=== PATIENT | male | born 1940 | race Caucasian/White ===

== ENCOUNTER → 2018-01-29 | Outpatient (CLI) | payer MEDICARE, OTHER ==
[~2018-01-29] MED LIST: ASPI81EC; ATOR10 PO; Aspirin EC81 MG; BUDE32NIS; CREON DR 12,001 EACH; DEXL60CA3; ESCI10 PO; Flector1 EACH; HERBS; HYDACE10B; Ipratropium Bro15 ML UD; LATA.005SO; MECL25 PO; MINER; NEBI5 PO; Pentoxifylline400 MG PO; Proctosol HC30 GM; RAMI5; RAMI5 PO; Ramipril10 MG PO; TIMO.25OPS; VITS; [UNRECOGNIZED DRUG - OTHER]; [UNRECOGNIZED DRUG - OTHER]
[2018-01-29 10:33] LABS: Hematocrit 38.4 % (37.0-53.0); Hemoglobin 13.1 g/dL (13.5-17.5); Mean Corpuscular HGB 34.3 pg (26.0-34.0); Mean Corpuscular HGB Conc 34.1 g/dL (31.5-36.5); Mean Corpuscular Volume 101 fL (80-100); Mean Platelet Volume 11.3 fL (9.1-12.4); Platelet Count 168 K/mm3 (150-400); RDW Coefficient Variation 13.1 % (11.7-14.2); RDW Standard Deviation 47.7 fL (35.1-46.3); Red Blood Cell Count 3.82 M/mm3 (4.30-5.90); White Blood Cell Count 5.08 K/mm3 (4.00-11.30)
[2018-01-29 10:46] LABS: Alanine Aminotransfer (ALT/SGP 33 U/L (12-78); Albumin/Globulin Ratio 1.4 (0.8-1.8); Alk Phos 64 U/L (40-126); Anion Gap 6 mmol/L (6-16); Aspartate Aminotrans (AST/SGOT 24 U/L (12-37); Bilirubin, Total 0.6 mg/dL (0.1-1.0); Blood Urea Nitrogen 20 mg/dL (8-24); Bun/Creatinine Ratio 26.3 (12.0-20.0); CHOL/HDL RATIO 3.3; CO2, Blood 31 mmol/L (21-32); Calcium, Blood 9.5 mg/dL (8.5-10.1); Chloride, Blood 107 mmol/L (98-108); Cholesterol 127 mg/dL (50-200); Creatinine, Blood 0.76 mg/dL (0.60-1.20); Globulin, Blood 2.8 g/dL (2.2-4.0); Glomerular Filtration Rate >60 (60-); Glucose, Blood 111 mg/dL (70-99); HDL Cholesterol 39 mg/dL (>39); LDL/HDL RATIO 1.9; Low Density Lipoprotein Chol 75 mg/dL (<110); Potassium, Blood 4.8 mmol/L (3.5-5.5); Sodium, Blood 144 mmol/L (136-145); Total Protein, Blood 6.8 g/dL (6.4-8.2); Triglycerides 63 mg/dL (30-160); Uric Acid, Blood 6.8 mg/dL (3.5-7.2); Very Low Density Lipoprot Chol 12 mg/dL (6-32)
== END ==
LOC: LAB EV 09:15
PROVIDERS: Family Medicine
DX: E11.9 Type 2 diabetes mellitus without complications (principal); M10.9 Gout, unspecified; I25.10 Atherosclerotic heart disease of native coronary artery without angina pectoris
CPT/HCPCS: 36415; 80053; 80061; 83036; 84550; 85027

== ENCOUNTER 2018-08-22 20:39 | Emergency (ER) | payer MEDICARE, OTHER ==
[~2018-08-22] VITALS: Ht 175.3 cm; Wt 78.5 kg
[~2018-08-22 20:39] MED LIST changes: -ESCI10 PO; -Ipratropium Bro15 ML UD
[2018-08-22] MEDS ORDERED: Ipratropium Bro15 ML UD (22:35)
[2018-08-22] MEDS ORDERED: ESCI10 PO (22:35)
== END 2018-08-23 01:16 | disposition home or self-care (01) ==
LOC: ER 20:39
DX: R22.0 Localized swelling, mass and lump, head (principal); Z88.0 Allergy status to penicillin; Z88.8 Allergy status to other drugs, medicaments and biological substances; Z79.899 Other long term (current) drug therapy; Z79.891 Long term (current) use of opiate analgesic; Z79.82 Long term (current) use of aspirin; I10 Essential (primary) hypertension; F32.9 Major depressive disorder, single episode, unspecified
CPT/HCPCS: 70450; 99283-25

== ENCOUNTER 2019-05-11 15:16 | Inpatient (IN) | payer MEDICARE, OTHER ==
[~2019-05-11] VITALS: Ht 175.3 cm; Wt 74.3 kg
[~2019-05-11 15:16] MED LIST changes: +Ipratropium Bro15 ML UD; -LATA.005SO; -Pentoxifylline400 MG PO; -RAMI5 PO; -TIMO.25OPS
[2019-05-11] MEDS ORDERED: ATOR20 PO (16:24)
[2019-05-11] MEDS ORDERED: LATA.005SO BOTHEYES (16:25)
[2019-05-11] MEDS ORDERED: TIMO.5OPSO BOTHEYES (16:25)
[2019-05-11] MEDS ORDERED: ESCI10 PO (16:26)
[2019-05-11] MEDS ORDERED: Ramipril10 MG PO (16:26)
[2019-05-11] MEDS ORDERED: Pentoxifylline400 MG PO (16:30)
[2019-05-11] MEDS ORDERED: CELE200 PO (16:30)
[2019-05-11] MEDS ORDERED: FOLI1 PO (16:42)
--- NOTE | 2019-05-11 18:55 | NUR ---
RECIEVED PATIENT FROM ER TRANSFER, WILL SETTLE PATIENT IN AND GIVE REPORT TO ONCOMING NOC RN.
[2019-05-11] MEDS ORDERED: TEMA30 PO (20:16)
[2019-05-11] MEDS ORDERED: Zantac150 MG PO (20:17)
[2019-05-11] MEDS ORDERED: Percocet 10-321 EACH PO (20:18)
[2019-05-11] MEDS ORDERED: OMEPRAZOLE20 MG PO (20:18)
[2019-05-11] MEDS ORDERED: NITR.4SL SL (20:19)
[2019-05-11] MEDS ORDERED: MOMENI (20:20)
[2019-05-11] MEDS ORDERED: LYCOPENE10 MG PO (20:20)
[2019-05-11] MEDS ORDERED: LORA1 PO (20:21)
[2019-05-11] MEDS ORDERED: NEBI5 PO (20:24)
[2019-05-11] MEDS ORDERED: GABA600 PO (20:25)
[2019-05-11] MEDS ORDERED: Ipratropium Bro15 ML (20:26)
[2019-05-11 21:13] LABS: Creatine Kinase MB 3.2 ng/mL (0.0-3.6); Creatine Kinase MB Index 2.8 (0.0-4.0); Troponin I 0.165 ng/mL (0.000-0.040)
[2019-05-12 01:39] LABS: Creatine Kinase MB 2.5 ng/mL (0.0-3.6); Creatine Kinase MB Index 2.5 (0.0-4.0); Troponin I 0.14 ng/mL (0.000-0.040)
--- NOTE | 2019-05-12 04:36 | NUR ---
SHIFT SUMMARY: PATIENT ALERT AND ORIENTED, INDEPENDENT IN THE ROOM, COMPLIANT WITH INTERVENTIONS AND USING THE CALL LIGHT APPROPRIATLY. SKIN IS C/D/I, TROPONINS ARE TRENDING DOWN AND BP IS STABALIZING, PATIENTS HAS NO C/O CP THIS SHIFT. ADMISSION COMPLETED, BED LOW AND LOCKED WITH CALL LIGHT WITHIN REACH.
[2019-05-12 06:14] LABS: BASOPHILS ABSOLUTE AUTO 0.04 K/mm3 (0.00-0.23); BASOPHILS PERCENT AUTO 0 % (0-2); EOSINOPHILS PERCENT AUTO 1 % (0-6); Hemoglobin 12.1 g/dL (13.5-17.5); IMMATURE GRAN ABSOLUTE AUTO 0.03 K/mm3 (0.00-0.10); IMMATURE GRAN PERCENT AUTO 0 % (0-1); LYMPHOCYTES ABSOLUTE AUTO 2.45 K/mm3 (0.84-5.20); LYMPHOCYTES PERCENT AUTO 26 % (21-46); MONOCYTES ABSOLUTE AUTO 0.92 K/mm3 (0.16-1.47); MONOCYTES PERCENT AUTO 10 % (4-13); Mean Corpuscular HGB Conc 33.6 g/dL (31.5-36.5); Mean Corpuscular Volume 101 fL (80-100); Mean Platelet Volume 10.4 fL (9.1-12.4); NEUTROPHILS ABSOLUTE AUTO 5.97 K/mm3 (1.96-9.15); NEUTROPHILS PERCENT AUTO 63 % (41-73); Platelet Count 164 K/mm3 (150-400); RDW Coefficient Variation 12.8 % (11.7-14.2); RDW Standard Deviation 47.9 fL (35.1-46.3); Red Blood Cell Count 3.56 M/mm3 (4.30-5.90); White Blood Cell Count 9.51 K/mm3 (4.00-11.30)
[2019-05-12 06:20] LABS: Alanine Aminotransfer (ALT/SGP 34 U/L (12-78); Albumin, Blood 3.2 g/dL (3.4-5.0); Albumin/Globulin Ratio 1.1 (0.8-1.8); Alk Phos 65 U/L (50-136); Anion Gap 6 mmol/L (6-16); Aspartate Aminotrans (AST/SGOT 24 U/L (12-37); Bilirubin, Total 0.6 mg/dL (0.1-1.0); Blood Urea Nitrogen 20 mg/dL (8-24); Bun/Creatinine Ratio 29.6 (12.0-20.0); CO2, Blood 29 mmol/L (21-32); Calcium, Blood 8.9 mg/dL (8.5-10.1); Chloride, Blood 110 mmol/L (98-108); Creatinine, Blood 0.68 mg/dL (0.60-1.20); Globulin, Blood 2.8 g/dL (2.2-4.0); Glomerular Filtration Rate >60 (60-); Glucose, Blood 106 mg/dL (70-99); Potassium, Blood 4.3 mmol/L (3.5-5.5); Sodium, Blood 145 mmol/L (136-145)
--- NOTE | 2019-05-12 07:30 | NUR ---
DR CHAMPAGNE CALLED TO CHECK UP ON PATIENT, SHE WOULD LIKE A CARDIOLITE STRESS TEST COMPLETED TODAY TO DISCHARGE THE PATIENT TODAY. WILL PLACE ORDER, EPI GONZALEZ CALLING TO SCHEDULE WITH [facility].
--- NOTE | 2019-05-12 10:00 | NUR ---
ASSUMED CARE OF PATIENT. REPORT RECIEVED FROM GIDEON AARON. PT IS RESTING COMFORTABLY IN BED, DENIES NEEDS AT THIS TIME.
--- NOTE | 2019-05-12 11:30 | NUR ---
ASSESSMENT: ASSESSMENT UNCHAGED FROM INITIAL ASSESSMENT. PT DENIES PAIN AT THIS TIME. VSS. PT CONTINUES TO BE NPO FOR RESTING PORTION OF STRESS TEST. PT DENIES NEEDS AT THIS TIME, CALL LIGHT IN REACH. WILL CONTINUE TO MONITOR.
--- NOTE | 2019-05-12 15:10 | NUR ---
ASSESSMENT: ASSESSMENT UNCHANGED. VSS. PT IS C/O HEADACHE DUE TO LACK OF CAFFIENE R/T STRESS TEST. TYLENOL GIVEN. PT DENIES OTHER NEEDS AT THIS TIME. CALL LIGHT IN REACH, WILL CONTINUE TO MONITOR.
--- NOTE | 2019-05-12 18:50 | NUR ---
PATIENT HAS DONE WELL FOR MY SHIFT. PT HAS HAD NO CHEST PAIN FOR ME. HEP GTT CONTINUES AT 13U/KG/HR. PLAN FOR SECOND PORTION OF STRESS TEST TOMORROW, DEPENDING ON RESULTS, POSSIBLE DC. NO ACUTE CHANGES THIS SHIFT. WILL REPORT TO ONCOMING RN.
[2019-05-13 06:13] LABS: BASOPHILS ABSOLUTE AUTO 0.03 K/mm3 (0.00-0.23); BASOPHILS PERCENT AUTO 0 % (0-2); EOSINOPHILS ABSOLUTE AUTO 0.16 K/mm3 (0.00-0.68); EOSINOPHILS PERCENT AUTO 2 % (0-6); Hemoglobin 12.8 g/dL (13.5-17.5); IMMATURE GRAN ABSOLUTE AUTO 0.03 K/mm3 (0.00-0.10); IMMATURE GRAN PERCENT AUTO 0 % (0-1); LYMPHOCYTES ABSOLUTE AUTO 2.11 K/mm3 (0.84-5.20); LYMPHOCYTES PERCENT AUTO 30 % (21-46); MONOCYTES ABSOLUTE AUTO 0.65 K/mm3 (0.16-1.47); MONOCYTES PERCENT AUTO 9 % (4-13); Mean Corpuscular HGB Conc 33.7 g/dL (31.5-36.5); Mean Corpuscular Volume 101 fL (80-100); Mean Platelet Volume 10.4 fL (9.1-12.4); NEUTROPHILS ABSOLUTE AUTO 4.04 K/mm3 (1.96-9.15); NEUTROPHILS PERCENT AUTO 58 % (41-73); Platelet Count 160 K/mm3 (150-400); RDW Coefficient Variation 12.6 % (11.7-14.2); RDW Standard Deviation 46.9 fL (35.1-46.3); Red Blood Cell Count 3.76 M/mm3 (4.30-5.90); White Blood Cell Count 7.02 K/mm3 (4.00-11.30)
[2019-05-13 06:35] LABS: Alanine Aminotransfer (ALT/SGP 30 U/L (12-78); Albumin, Blood 3.2 g/dL (3.4-5.0); Alk Phos 70 U/L (50-136); Anion Gap 7 mmol/L (6-16); Aspartate Aminotrans (AST/SGOT 19 U/L (12-37); Bilirubin, Total 0.6 mg/dL (0.1-1.0); Blood Urea Nitrogen 15 mg/dL (8-24); Bun/Creatinine Ratio 26.7 (12.0-20.0); CO2, Blood 29 mmol/L (21-32); Calcium, Blood 9.1 mg/dL (8.5-10.1); Chloride, Blood 109 mmol/L (98-108); Creatinine, Blood 0.56 mg/dL (0.60-1.20); Globulin, Blood 3.1 g/dL (2.2-4.0); Glomerular Filtration Rate >60 (60-); Glucose, Blood 115 mg/dL (70-99); Magnesium, Blood 2.2 mg/dL (1.6-2.4); Phosphorus, Blood 3.9 mg/dL (2.5-4.9); Potassium, Blood 3.8 mmol/L (3.5-5.5); Sodium, Blood 145 mmol/L (136-145); Total Protein, Blood 6.3 g/dL (6.4-8.2)
--- NOTE | 2019-05-13 07:40 | NUR ---
SHIFT SUMMARY PATIENT VERY PLEASENT AND COOPERATIVE THROUGHOUT THE NIGHT. PATIENT APPEARED TO SLEEP WELL THROUGHOUT THE NIGHT. PATIENT MEDICATED FOR A HEADACHE PER EMAR. HEPARIN GTT RUNNING PER ORDERS [id number] THE NIGHT. PATIENT HAS HAD NO COMPLAINTS OF CHEST PAIN LAST NIGHT. VITAL SIGNS CHARTED. REPORT GIVEN TO ONCOMING RN.
--- NOTE | 2019-05-13 09:04 | NUR ---
DR. WOLFF: PROVIDER AT BEDSIDE TO SEE PT. PLAN IS TO COMPLETE ANGIOGRAM TODAY, TIME UNDETERMINED. CONSENT HAS BEEN DISCUSSED & PAPERWORK COMPLETED BY PT & PROVIDER. WILL CONTINUE TO MONITOR & UPDATE NEEDED.
--- NOTE | 2019-05-13 09:33 | NUR ---
[facility]ENTER: PT TAKEN VIA BED TO HEART CENTER FOR ANGIOGRAM BY URSZULA RN.
--- NOTE | 2019-05-13 09:35 | NUR ---
HEPARIN DRIP: PHARMACIST NOTIFIED THAT HEPARIN DRIP TURNED OFF BY URSZULA RN AT APPROX 0900.
--- NOTE | 2019-05-13 10:21 | NUR ---
[facility]ENTER UPDATE: CALL FROM GREYSON Hewitt RN. PT WILL BE RETURNING TO UNIT SHORTLY. 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
--- NOTE | 2019-05-13 10:49 | NUR ---
RETURN FROM [facility]ART CENTER / ASSUMED CARE: BEDSIDE REPORT RECEIVED FROM GREYSON Hewitt RN. PT RETURNED TO ROOM AT APPROX 1035. VSS, R RADIAL ACCESS SITE WNL. NO BLEEDING, BRUISING OR HEMATOMA FORMATION NOTED. TR BAND IN PLACE & INFLATED W/ APPROX 8 CC AIR. BAND PLACED AT 1015 PER REPORT. PT RECEIVED 1 MG VERSED & 25 MCG FENTANYL DURING PROCEDURE, HE IS CURRENTLY AWAKE, A&O. 3000 UNITS HEPARIN GIVEN, HEPARIN DRIP D/C'd PER DR. WOLFF. PLAN IS FOR TRANSFER TO [facility] IN [place]. COBRA TRANSFER ORDERS PLACED, ACCEPTING PROVIDER IS DR. GOLDSTEIN. WILL AWAIT BED ASSIGNMENT AT ACCEPTING FACILITY & UPDATE NEEDED
--- NOTE | 2019-05-13 18:15 | NUR ---
SHIFT SUMMARY: NO ACUTE CHANGES SINCE PT RETURN FROM HC. HE REMAINS A&O, PLEASANT & COOPERATIVE W/ CARE & WRIST PRECAUTIONS. TR BAND FULLY REMOVED AT 1500, OPSITE PLACED & ARM BOARD REMAINS ON. NO BLEEDING OR HEMATOMA FORMATION TO THE SITE OR SURROUNDING TISSUE, SMALL AMNT BRUISING DIRECTLY SURROUNDING PUNCTURE SITE IS UNCHANGED. LS ARE CLEAR, PT ON RA W/ O2 SATS > 92%. TELE MONITOR SHOWING SINUS WILLIAM W/ AVG HR 40-50s. BT x4, PT STS DECREASED APPETITE WHICH IS "NORMAL" FOR HIM. VOIDING W/O DIFFICULTY USING URINAL AT BEDSIDE. SKIN OVERALL CDI. PT's SPOUSE HAS BEEN AT BEDSIDE FOR MOST OF THIS SHIFT & IS SUPPORTIVE W/ CARE. SHE IS AWARE OF NEED FOR TRANSFER & THAT WE ARE AWAITING BED ASSIGNMENT. WILL CONTINUE TO MONITOR & UPDATE NEEDED.
--- NOTE | 2019-05-14 06:52 | NUR ---
SHIFT SUMMARY PATIENT PLEASENT AND COOPERATIVE THROUGHOUT THE NIGHT. PATIENT AWAKE UNTIL APPROX 0000, THEN PATIENT APPEARED TO SLEEP WELL THROUGHOUT THE REST OF THE NIGHT. VITAL SIGNS CHARTED. PATIENT CURRENTLY APPEARS TO BE ASLEEP. PATIENT'S HEART RATE TRENDING IN THE 40'S THROUGHOUT THE NIGHT. WILL COTNINUE TO MONITOR PATIENT AND REPORT TO ONCOMING RN.
--- NOTE | 2019-05-14 10:40 | NUR ---
DISCHARGE TO [facility] BED ASSIGNEMENT RECEIVED FROM [facility]. [facility] HERE TO TRANSFER PT. REPORT CALLED TO YORDY AARON AT [facility]. PT AGREEABLE TO TRANSPORT. PT CPAP SENT WITH HIM. CONTINUE DANIEL.
== END 2019-05-14 10:37 | disposition short-term general hospital (02) | DRG 287 ==
LOC: ER 15:16 → PCU 15:17 → ER 16:44 → PCU 16:44
PROVIDERS: Hospitalist; Internal Medicine; ADMIT Internal Medicine Endocrinology, Diabetes & Metabolism
PROC: 4A023N7 Measurement of Cardiac Sampling and Pressure, Left Heart, Percutaneous Approach (ICD-10-PCS; principal; 2019-05-13)
PROC: B211YZZ Fluoroscopy of Multiple Coronary Arteries using Other Contrast (ICD-10-PCS; 2019-05-13)
DX: I25.110 Atherosclerotic heart disease of native coronary artery with unstable angina pectoris (principal); I10 Essential (primary) hypertension; E78.5 Hyperlipidemia, unspecified; I44.0 Atrioventricular block, first degree; M48.061 Spinal stenosis, lumbar region without neurogenic claudication; Z95.5 Presence of coronary angioplasty implant and graft; M19.90 Unspecified osteoarthritis, unspecified site; G47.00 Insomnia, unspecified
CPT/HCPCS: 36415; 71045; 78451; 80053; 82550; 82553; 83735; 83880; 84100; 84484; 85025; 85730; 93005; 93010; 93017; 93454; 96365; 96366; 96375; 96376; 99152; 99153; 99285-25; A9270; A9500; C1769; C1894; C9113; G0378; J0706; J1644; J2250; J2785; J3010; J7030; Q9967

== ENCOUNTER → 2019-12-24 | Outpatient (CLI) | payer MEDICARE, OTHER ==
[~2019-12-24] MED LIST changes: +ATOR20 PO; +CELE200 PO; +ESCI10 PO; +FOLI1 PO; +GABA600 PO; +Ipratropium Bro15 ML; +LATA.005SO BOTHEYES; +LORA1 PO; +LYCOPENE10 MG PO; +MOMENI; +NITR.4SL SL; +OMEPRAZOLE20 MG PO; +Pentoxifylline400 MG PO; +Percocet 10-321 EACH PO; +TEMA30 PO; +TIMO.5OPSO BOTHEYES; +Zantac150 MG PO
[2019-12-24 15:36] LABS: BASOPHILS ABSOLUTE AUTO 0.03 K/mm3 (0.00-0.23); BASOPHILS PERCENT AUTO 1 % (0-2); EOSINOPHILS ABSOLUTE AUTO 0.06 K/mm3 (0.00-0.68); EOSINOPHILS PERCENT AUTO 1 % (0-6); Hematocrit 40.3 % (37.0-53.0); IMMATURE GRAN ABSOLUTE AUTO 0.01 K/mm3 (0.00-0.10); IMMATURE GRAN PERCENT AUTO 0 % (0-1); LYMPHOCYTES ABSOLUTE AUTO 0.76 K/mm3 (0.84-5.20); LYMPHOCYTES PERCENT AUTO 17 % (21-46); MONOCYTES ABSOLUTE AUTO 0.97 K/mm3 (0.16-1.47); MONOCYTES PERCENT AUTO 21 % (4-13); Mean Corpuscular HGB 34.6 pg (26.0-34.0); Mean Corpuscular HGB Conc 34.7 g/dL (31.5-36.5); Mean Corpuscular Volume 100 fL (80-100); NEUTROPHILS ABSOLUTE AUTO 2.78 K/mm3 (1.96-9.15); NEUTROPHILS PERCENT AUTO 60 % (41-73); Platelet Count 195 K/mm3 (150-400); RDW Coefficient Variation 13.4 % (11.7-14.2); RDW Standard Deviation 49.5 fL (35.1-46.3); Red Blood Cell Count 4.05 M/mm3 (4.30-5.90); White Blood Cell Count 4.61 K/mm3 (4.00-11.30)
[2019-12-24 15:47] LABS: Alanine Aminotransfer (ALT/SGP 39 U/L (12-78); Albumin, Blood 3.9 g/dL (3.4-5.0); Albumin/Globulin Ratio 1.3 (0.8-1.8); Alk Phos 81 U/L (40-126); Anion Gap 9 mmol/L (6-16); Aspartate Aminotrans (AST/SGOT 40 U/L (12-37); Bilirubin, Total 0.5 mg/dL (0.1-1.0); Blood Urea Nitrogen 23 mg/dL (8-24); Bun/Creatinine Ratio 22.8 (12.0-20.0); CO2, Blood 27 mmol/L (21-32); Calcium, Blood 9.4 mg/dL (8.5-10.1); Chloride, Blood 106 mmol/L (98-108); Creatinine, Blood 1.01 mg/dL (0.60-1.20); Glomerular Filtration Rate >60 (60-); Glucose, Blood 86 mg/dL (70-99); Potassium, Blood 4.6 mmol/L (3.5-5.5); Sodium, Blood 142 mmol/L (136-145); Total Protein, Blood 6.9 g/dL (6.4-8.2)
== END | disposition home or self-care (01) ==
LOC: LAB SHORT 15:28 → LAB EV 15:28
PROVIDERS: Physician Assistant
DX: R19.7 Diarrhea, unspecified (principal); Z95.1 Presence of aortocoronary bypass graft
CPT/HCPCS: 80053; 83690; 84484; 85025

== ENCOUNTER → 2019-12-25 | Outpatient (CLI) | payer MEDICARE, OTHER ==
[2019-12-26 19:25] LABS: Adenovirus F 40/41 Not Detected (NOT DETECT); Astrovirus Not Detected (NOT DETECT); Campylobacter Sp Not Detected (NOT DETECT); Cryptosporidium Not Detected (NOT DETECT); Cyclospora Cayetanensis Not Detected (NOT DETECT); E. Coli O157 Not Detected (NOT DETECT); Entamoeba Histolytica Not Detected (NOT DETECT); Enteroaggregative E. coli-EAEC Not Detected (NOT DETECT); Enteropathogenic E. coli-EPEC Not Detected (NOT DETECT); Enterotoxigenic E. coli-ETEC Not Detected (NOT DETECT); Giardia Lamblia Not Detected (NOT DETECT); Norovirus GI/GII Not Detected (NOT DETECT); Plesiomonas Shigelloides Not Detected (NOT DETECT); Rotavirus A Not Detected (NOT DETECT); Salmonella Sp Not Detected (NOT DETECT); Sapovirus Not Detected (NOT DETECT); Shiga Toxin-prod E. coli-STEC Not Detected (NOT DETECT); Shigella/Enteroin E. coli-EIEC Not Detected (NOT DETECT); Vibrio Cholerae Not Detected (NOT DETECT); Vibrio Sp Not Detected (NOT DETECT); Yersinia Enterocolitica Not Detected (NOT DETECT)
== END | disposition home or self-care (01) ==
LOC: LAB EV 13:18
PROVIDERS: Family Medicine
DX: K57.30 Diverticulosis of large intestine without perforation or abscess without bleeding (principal); R19.7 Diarrhea, unspecified
CPT/HCPCS: 0097U

== ENCOUNTER 2020-12-16 07:28 | Day surgery (SDC) | payer MEDICARE, OTHER ==
[~2020-12-16] VITALS: Ht 175.3 cm; Wt 80.4 kg
[~2020-12-16 07:28] MED LIST changes: +Abilify2 MG PO; +CO Q10100 MG PO; +Flector1 EACH TOP; +Grape Seed50 M1 PO; +MELATONIN5 M1 PO; +METO25ER PO; +MULVITA PO; +RAMI5 PO; +TAMS.4ER PO; +TURMERIC ROOT5000 GM PO; +VENL37.5 PO; +VITAMIN D5000 UNIT PO
--- NOTE | 2020-12-16 08:48 | NUR ---
Ambulatory in Day Surgery. Surgical site prepped with 2% Chlorhexidine cloth wipe. History, Chart, Medications and Allergies reviewed before start of procedure. Lungs clear T/O to Auscultation. Patient confirms NPO status and agrees with scheduled surgery. Pre-Op teaching done. Pt verbalizes understanding. Patient States Post-Procedure ride home has been arranged. Patient reports completing Chlorhexadine shower X2 prior to admission to hospital.
--- NOTE | 2020-12-18 09:52 | NUR ---
12/18/20 0952 Cathleen Mccartney VERIFICATIONS: EDIT CHART.
== END 2020-12-16 22:48 | disposition home or self-care (01) ==
LOC: ORSCMMR 07:28 → ORD 09:00 → ORSCMMR 09:00
PROVIDERS: Surgery
PROC: 0YU60JZ Supplement Left Inguinal Region with Synthetic Substitute, Open Approach (ICD-10-PCS; principal; 2020-12-16 09:00)
DX: K40.90 Unilateral inguinal hernia, without obstruction or gangrene, not specified as recurrent (principal); I10 Essential (primary) hypertension; G47.33 Obstructive sleep apnea (adult) (pediatric); K21.9 Gastro-esophageal reflux disease without esophagitis; Z87.891 Personal history of nicotine dependence; Z79.899 Other long term (current) drug therapy
CPT/HCPCS: A9270; C1781; J0690; J2250; J2704; J3010; J7120

== ENCOUNTER 2021-06-05 23:34 | Emergency (ER) | payer MEDICARE, OTHER ==
[~2021-06-05] VITALS: Ht 175.3 cm; Wt 77.1 kg
[2021-06-06 00:08] LABS: BASOPHILS ABSOLUTE AUTO 0.01 K/mm3 (0.00-0.23); BASOPHILS PERCENT AUTO 0 % (0-2); EOSINOPHILS ABSOLUTE AUTO 0.04 K/mm3 (0.00-0.68); EOSINOPHILS PERCENT AUTO 1 % (0-6); Hematocrit 44.3 % (37.0-53.0); Hemoglobin 15.3 g/dL (13.5-17.5); IMMATURE GRAN ABSOLUTE AUTO 0.03 K/mm3 (0.00-0.10); IMMATURE GRAN PERCENT AUTO 0 % (0-1); LYMPHOCYTES ABSOLUTE AUTO 1.81 K/mm3 (0.84-5.20); LYMPHOCYTES PERCENT AUTO 24 % (21-46); MONOCYTES ABSOLUTE AUTO 0.32 K/mm3 (0.16-1.47); MONOCYTES PERCENT AUTO 4 % (4-13); Mean Corpuscular HGB 34.2 pg (26.0-34.0); Mean Corpuscular HGB Conc 34.5 g/dL (31.5-36.5); Mean Corpuscular Volume 99 fL (80-100); Mean Platelet Volume 10.4 fL (9.1-12.4); NEUTROPHILS ABSOLUTE AUTO 5.33 K/mm3 (1.96-9.15); NEUTROPHILS PERCENT AUTO 71 % (41-73); Platelet Count 202 K/mm3 (150-400); RDW Coefficient Variation 12.9 % (11.7-14.2); RDW Standard Deviation 46.9 fL (35.1-46.3); Red Blood Cell Count 4.47 M/mm3 (4.30-5.90); White Blood Cell Count 7.54 K/mm3 (4.00-11.30)
[2021-06-06 00:25] LABS: Alanine Aminotransfer (ALT/SGP 50 U/L (12-78); Albumin, Blood 3.4 g/dL (3.4-5.0); Albumin/Globulin Ratio 1.1 (0.8-1.8); Alk Phos 69 U/L (50-136); Anion Gap 4 mmol/L (6-16); Aspartate Aminotrans (AST/SGOT 24 U/L (12-37); Bilirubin, Total 0.3 mg/dL (0.1-1.0); Blood Urea Nitrogen 37 mg/dL (8-24); CO2, Blood 29 mmol/L (21-32); Chloride, Blood 105 mmol/L (98-108); Creatinine, Blood 0.71 mg/dL (0.60-1.20); Globulin, Blood 3.1 g/dL (2.2-4.0); Glomerular Filtration Rate >60 (60-); Glucose, Blood 165 mg/dL (70-99); Magnesium, Blood 2.3 mg/dL (1.6-2.4); Potassium, Blood 4.3 mmol/L (3.5-5.5); Sodium, Blood 138 mmol/L (136-145); Total Protein, Blood 6.5 g/dL (6.4-8.2); Troponin I <0.015 ng/mL (0.000-0.040)
[2021-06-06] MEDS ORDERED: Venlafaxine HC225 MG PO (00:49)
== END 2021-06-06 05:10 | disposition home or self-care (01) ==
LOC: ER 23:34
PROVIDERS: Emergency Medicine
DX: R07.9 Chest pain, unspecified (principal); I10 Essential (primary) hypertension; K21.9 Gastro-esophageal reflux disease without esophagitis; E78.5 Hyperlipidemia, unspecified; Z87.891 Personal history of nicotine dependence; Z88.0 Allergy status to penicillin; Z91.013 Allergy to seafood; Z79.899 Other long term (current) drug therapy
CPT/HCPCS: 36415; 71045; 80053; 83690; 83735; 83880; 84484; 85025; 93005; 93010; 96374; 96375; 99285-25; J2270

== ENCOUNTER 2021-07-08 16:39 | Emergency (ER) | payer OTHER, MEDICARE ==
[~2021-07-08] VITALS: Ht 175.3 cm; Wt 77.1 kg
[~2021-07-08 16:39] MED LIST changes: +Venlafaxine HC225 MG PO
[2021-07-08 17:08] LABS: BASOPHILS ABSOLUTE AUTO 0.04 K/mm3 (0.00-0.23); BASOPHILS PERCENT AUTO 1 % (0-2); EOSINOPHILS ABSOLUTE AUTO 0.53 K/mm3 (0.00-0.68); EOSINOPHILS PERCENT AUTO 8 % (0-6); Hematocrit 38.2 % (37.0-53.0); Hemoglobin 13.2 g/dL (13.5-17.5); IMMATURE GRAN ABSOLUTE AUTO 0.02 K/mm3 (0.00-0.10); IMMATURE GRAN PERCENT AUTO 0 % (0-1); LYMPHOCYTES ABSOLUTE AUTO 1.51 K/mm3 (0.84-5.20); LYMPHOCYTES PERCENT AUTO 22 % (21-46); MONOCYTES ABSOLUTE AUTO 0.73 K/mm3 (0.16-1.47); MONOCYTES PERCENT AUTO 11 % (4-13); Mean Corpuscular HGB 34.2 pg (26.0-34.0); Mean Corpuscular HGB Conc 34.6 g/dL (31.5-36.5); Mean Corpuscular Volume 99 fL (80-100); Mean Platelet Volume 11.2 fL (9.1-12.4); NEUTROPHILS ABSOLUTE AUTO 4.01 K/mm3 (1.96-9.15); NEUTROPHILS PERCENT AUTO 59 % (41-73); Platelet Count 176 K/mm3 (150-400); RDW Coefficient Variation 13.1 % (11.7-14.2); RDW Standard Deviation 47.2 fL (35.1-46.3); Red Blood Cell Count 3.86 M/mm3 (4.30-5.90); White Blood Cell Count 6.84 K/mm3 (4.00-11.30)
[2021-07-08 17:34] LABS: Alanine Aminotransfer (ALT/SGP 31 U/L (12-78); Albumin, Blood 3.5 g/dL (3.4-5.0); Albumin/Globulin Ratio 1.2 (0.8-1.8); Alk Phos 65 U/L (50-136); Anion Gap 5 mmol/L (6-16); Aspartate Aminotrans (AST/SGOT 29 U/L (12-37); Bilirubin, Total 0.4 mg/dL (0.1-1.0); Blood Urea Nitrogen 21 mg/dL (8-24); Bun/Creatinine Ratio 26.5 (12.0-20.0); CO2, Blood 25 mmol/L (21-32); Calcium, Blood 8.8 mg/dL (8.5-10.1); Chloride, Blood 108 mmol/L (98-108); Creatinine, Blood 0.79 mg/dL (0.60-1.20); Ethanol (Alcohol), Blood, Med <3 mg/dL; Glomerular Filtration Rate >60 (60-); Glucose, Blood 98 mg/dL (70-99); Potassium, Blood 4.6 mmol/L (3.5-5.5); Sodium, Blood 138 mmol/L (136-145); Total Protein, Blood 6.5 g/dL (6.4-8.2); Troponin I 0.018 ng/mL (0.000-0.040)
[2021-07-08] MEDS ORDERED: IBUP600 PO (19:50)
[2021-07-08] MEDS ORDERED: Robaxin750 MG PO (19:50)
[2021-07-08] MEDS ORDERED: Percocet 5-3251 EACH PO (19:50)
== END 2021-07-08 20:04 | disposition home or self-care (01) ==
LOC: ER 16:39
PROVIDERS: Student in an Organized Health Care Education/Training Program
DX: S16.1XXA Strain of muscle, fascia and tendon at neck level, initial encounter (principal); S06.9X9A Unspecified intracranial injury with loss of consciousness of unspecified duration, initial encounter; S20.212A Contusion of left front wall of thorax, initial encounter; I10 Essential (primary) hypertension; I25.10 Atherosclerotic heart disease of native coronary artery without angina pectoris; G47.33 Obstructive sleep apnea (adult) (pediatric); K21.9 Gastro-esophageal reflux disease without esophagitis; R40.2362 Coma scale, best motor response, obeys commands, at arrival to emergency department; R40.2142 Coma scale, eyes open, spontaneous, at arrival to emergency department; R40.2252 Coma scale, best verbal response, oriented, at arrival to emergency department; Z88.0 Allergy status to penicillin; Z91.013 Allergy to seafood; Z79.82 Long term (current) use of aspirin; Z79.899 Other long term (current) drug therapy; Z95.5 Presence of coronary angioplasty implant and graft; Z87.891 Personal history of nicotine dependence; V43.52XA Car driver injured in collision with other type car in traffic accident, initial encounter
CPT/HCPCS: 36415; 70450; 71101; 72125; 80053; 84484; 85025; 93005; 93010; 99285-25; A9270; G0480

== ENCOUNTER → 2023-06-26 | Outpatient (CLI) | payer MEDICARE, OTHER ==
[~2023-06-26] MED LIST changes: +IBUP600 PO; +Percocet 5-3251 EACH PO; +Robaxin750 MG PO
== END | disposition home or self-care (01) ==
LOC: LAB 14:04 → LAB SHORT 14:04
DX: N39.0 Urinary tract infection, site not specified (principal)
CPT/HCPCS: 87086

== ENCOUNTER 2023-08-04 00:11 | Emergency (ER) | payer MEDICARE, OTHER ==
[~2023-08-04] VITALS: Ht 175.3 cm; Wt 77.1 kg
[2023-08-04 05:09] VITALS: BP 143/86
[2023-08-04] MEDS ORDERED: OXYB5 PO (06:33)
== END 2023-08-04 09:08 | disposition home or self-care (01) ==
LOC: ER 00:11
DX: R10.30 Lower abdominal pain, unspecified (principal); Z90.6 Acquired absence of other parts of urinary tract; Z46.6 Encounter for fitting and adjustment of urinary device; Z88.0 Allergy status to penicillin; Z91.013 Allergy to seafood; Z79.899 Other long term (current) drug therapy; Z79.82 Long term (current) use of aspirin; I10 Essential (primary) hypertension; E78.5 Hyperlipidemia, unspecified; M10.9 Gout, unspecified; K21.9 Gastro-esophageal reflux disease without esophagitis; G47.33 Obstructive sleep apnea (adult) (pediatric); Z87.891 Personal history of nicotine dependence
CPT/HCPCS: 51798; 99283; A9270

== ENCOUNTER 2023-08-07 13:31 | Emergency (ER) | payer MEDICARE, OTHER ==
[~2023-08-07] VITALS: Ht 177.8 cm; Wt 83.9 kg
[~2023-08-07 13:31] MED LIST changes: +OXYB5 PO
[2023-08-07 14:16] LABS: Source, Urine Foley catheter
[2023-08-07 14:19] LABS: Appearance, Urine Clear (Clear); Bilirubin, Urine Neg (Neg); Blood, Urine 3+ (Neg); Color, Urine Yellow (P-Yellow); Glucose Qualitative, Urine Neg (Neg); Ketones, Urine Neg (Neg); Leukocyte Esterase, Urine 3+ (Neg); Nitrite, Urine Neg (Neg); Protein, Urine 1+ (Neg); Urobilinogen, Urine NORM (Normal)
[2023-08-07 14:27] LABS: Bacteria Many /hpf; Squamous Epithelial Cells Rare /hpf (Few); White Blood Cells, Urine 25-50 /hpf (0-5)
[2023-08-07 14:31] LABS: BASOPHILS ABSOLUTE AUTO 0.03 K/mm3 (0.00-0.23); BASOPHILS PERCENT AUTO 0 % (0-2); EOSINOPHILS ABSOLUTE AUTO 0.16 K/mm3 (0.00-0.68); EOSINOPHILS PERCENT AUTO 2 % (0-6); Hematocrit 30.5 % (37.0-53.0); Hemoglobin 10.3 g/dL (13.5-17.5); IMMATURE GRAN ABSOLUTE AUTO 0.03 K/mm3 (0.00-0.10); IMMATURE GRAN PERCENT AUTO 0 % (0-1); LYMPHOCYTES ABSOLUTE AUTO 0.74 K/mm3 (0.84-5.20); LYMPHOCYTES PERCENT AUTO 8 % (21-46); MONOCYTES ABSOLUTE AUTO 0.81 K/mm3 (0.16-1.47); MONOCYTES PERCENT AUTO 9 % (4-13); Mean Corpuscular HGB 33.3 pg (26.0-34.0); Mean Corpuscular HGB Conc 33.8 g/dL (31.5-36.5); Mean Corpuscular Volume 99 fL (80-100); Mean Platelet Volume 9.7 fL (9.1-12.4); NEUTROPHILS ABSOLUTE AUTO 7.05 K/mm3 (1.96-9.15); NEUTROPHILS PERCENT AUTO 80 % (41-73); Platelet Count 263 K/mm3 (150-400); RDW Coefficient Variation 12.2 % (11.7-14.2); RDW Standard Deviation 44.2 fL (35.1-46.3); Red Blood Cell Count 3.09 M/mm3 (4.30-5.90); White Blood Cell Count 8.82 K/mm3 (4.00-11.30)
[2023-08-07 15:07] LABS: Albumin, Blood 2.8 g/dL (3.4-5.0); Albumin/Globulin Ratio 0.8 (0.8-1.8); Bilirubin, Total 0.3 mg/dL (0.1-1.0); Bun/Creatinine Ratio 21.9 (12.0-20.0); Calcium, Blood 8.8 mg/dL (8.5-10.1); Creatinine, Blood 0.92 mg/dL (0.60-1.20); Globulin, Blood 3.3 g/dL (2.2-4.0); Potassium, Blood 4.8 mmol/L (3.5-5.5); Total Protein, Blood 6.1 g/dL (6.4-8.2)
[2023-08-07] MEDS ORDERED: SULTRIDS PO (15:44)
[2023-08-07 15:45] VITALS: BP 110/54
== END 2023-08-07 16:27 | disposition home or self-care (01) ==
LOC: ER 13:31
PROVIDERS: Student in an Organized Health Care Education/Training Program
DX: R33.9 Retention of urine, unspecified (principal); N39.0 Urinary tract infection, site not specified; I10 Essential (primary) hypertension; I25.10 Atherosclerotic heart disease of native coronary artery without angina pectoris; E78.5 Hyperlipidemia, unspecified; N40.0 Benign prostatic hyperplasia without lower urinary tract symptoms; K21.9 Gastro-esophageal reflux disease without esophagitis; Z88.0 Allergy status to penicillin; Z91.013 Allergy to seafood; Z79.899 Other long term (current) drug therapy; Z87.891 Personal history of nicotine dependence
CPT/HCPCS: 51702; 80053; 81001; 85025; 87077; 87086; 87186; 99284-25; A9270

== ENCOUNTER 2023-10-18 20:39 | Emergency (ER) | payer MEDICARE, OTHER ==
[~2023-10-18] VITALS: Ht 175.3 cm; Wt 74.8 kg
[~2023-10-18 20:39] MED LIST changes: +SULTRIDS PO
[2023-10-18 21:31] LABS: Influenza A, PCR NEGATIVE (NEGATIVE); Influenza B, PCR NEGATIVE (NEGATIVE); Resp Syncytial Virus, PCR NEGATIVE (NEGATIVE); SARS-Cov-2 (COVID-19) PCR, MMC NEGATIVE (NEGATIVE)
[2023-10-18 22:39] LABS: Albumin/Globulin Ratio 0.8 (0.8-1.8); Bilirubin, Total 0.4 mg/dL (0.1-1.0); Bun/Creatinine Ratio 27.5 (12.0-20.0); Calcium, Blood 9.1 mg/dL (8.5-10.1); Creatinine, Blood 1.2 mg/dL (0.60-1.20)
[2023-10-18 22:51] LABS: Source, Urine Clean Catch
[2023-10-18 23:05] LABS: Hematocrit 26.8 % (37.0-53.0); Hemoglobin 9.4 g/dL (13.5-17.5); Mean Corpuscular HGB 31.6 pg (26.0-34.0); Mean Corpuscular HGB Conc 35.1 g/dL (31.5-36.5); Mean Corpuscular Volume 90 fL (80-100); Mean Platelet Volume 10.3 fL (9.1-12.4); Platelet Count 100 K/mm3 (150-400); RDW Coefficient Variation 12.5 % (11.7-14.2); RDW Standard Deviation 41.1 fL (35.1-46.3); Red Blood Cell Count 2.97 M/mm3 (4.30-5.90)
[2023-10-18 23:13] LABS: Bilirubin, Urine Neg (Neg); Blood, Urine 2+ (Neg); Glucose Qualitative, Urine Neg (Neg); Ketones, Urine Neg (Neg); Leukocyte Esterase, Urine 1+ (Neg); Nitrite, Urine Neg (Neg); Protein, Urine 3+ (Neg); Urobilinogen, Urine NORM (Normal)
[2023-10-18 23:29] LABS: White Blood Cell Count 0.92 K/mm3 (4.00-11.30)
[2023-10-18 23:35] LABS: Appearance, Urine Hazy (Clear); Color, Urine Yellow (P-Yellow)
[2023-10-18 23:36] LABS: Bacteria Many /hpf; Squamous Epithelial Cells Few /hpf (Few)
[2023-10-19] MEDS ORDERED: NYSTATIN100000 U13 MT (01:12)
[2023-10-19] MEDS ORDERED: Amoxicillin875 MG PO (01:12)
[2023-10-19] MEDS ORDERED: Macrobid 100 M100 MG PO (01:47)
[2023-10-19 02:30] LABS: BAND PERCENT MAN 4 % (0-8); BASOPHILS PERCENT MAN 0 % (0-2); EOSINOPHILS PERCENT MAN 0 % (0-6); LYMPHOCYTES % ATYPICAL MANUAL 4 % (0-0); LYMPHOCYTES ABSOLUTE MAN 0.55 K/mm3 (0.84-5.20); LYMPHOCYTES PERCENT MAN 56 % (21-46); MONOCYTES ABSOLUTE MAN 0.25 K/mm3 (0.16-1.47); MONOCYTES PERCENT MAN 28 % (4-13); NEUTROPHILS ABSOLUTE MAN 0.11 K/mm3 (1.96-9.15); SEG NEUTROPHILS PERCENT MAN 8 % (41-73); TOTAL CELLS COUNTED 25
[2023-10-19 03:03] VITALS: BP 132/61
== END 2023-10-19 03:03 | disposition home or self-care (01) ==
LOC: ER 20:39
PROVIDERS: Emergency Medicine
DX: B37.89 Other sites of candidiasis (principal); N39.0 Urinary tract infection, site not specified; D70.9 Neutropenia, unspecified; C67.9 Malignant neoplasm of bladder, unspecified; I10 Essential (primary) hypertension; I25.10 Atherosclerotic heart disease of native coronary artery without angina pectoris; E78.5 Hyperlipidemia, unspecified; Z88.0 Allergy status to penicillin; Z91.013 Allergy to seafood; Z79.899 Other long term (current) drug therapy; Z79.82 Long term (current) use of aspirin; Z87.891 Personal history of nicotine dependence
CPT/HCPCS: 0241U; 80053; 81001; 85025; 87077; 87086; 87186; 93005; 93010; 99283; A9270

== ENCOUNTER 2023-12-08 00:59 | Day surgery (SDC) | payer MEDICARE ==
[2023-12-08] VITALS (7 sets, daily range): BP systolic 108–136; BP diastolic 47–68
[~2023-12-08 00:59] MED LIST changes: +ABILIFY MYCITE5 M2 PO; -Abilify2 MG PO; +Amoxicillin875 MG PO; +Macrobid 100 M100 MG PO; +NYSTATIN100000 U13 MT
[2023-12-08] MEDS ORDERED: OMEP20ER PO (14:11)
== END 2023-12-08 17:45 | disposition home or self-care (01) ==
LOC: ATC 00:59
DX: C67.4 Malignant neoplasm of posterior wall of bladder (principal); N17.9 Acute kidney failure, unspecified; D70.1 Agranulocytosis secondary to cancer chemotherapy; D69.6 Thrombocytopenia, unspecified; Z88.0 Allergy status to penicillin; C78.00 Secondary malignant neoplasm of unspecified lung; D64.81 Anemia due to antineoplastic chemotherapy; D69.59 Other secondary thrombocytopenia; R31.9 Hematuria, unspecified
CPT/HCPCS: 36430; 81001; 86850; 86900; 86901; 86920; J7050; P9016

== ENCOUNTER 2023-12-30 22:51 | Inpatient (IN) | payer MEDICARE ==
[~2023-12-30] VITALS: Ht 177.8 cm; Wt 74.5 kg
[~2023-12-30 22:51] MED LIST changes: -ABILIFY MYCITE5 M2 PO; +ABILIFY MYCITE5 M2 PT; -ATOR20 PO; +ATOR20 PT; -Aspirin EC81 MG; +Aspirin EC81 MG PT; -CELE200 PO; +CELE200 PT; -CO Q10100 MG PO; +CO Q10100 MG PT; -MULVITA PO; +MULVITA PT; +OMEP20ER PO; +Ramipril10 MG PT; -TAMS.4ER PO; +TAMS.4ER PT; -TEMA30 PO; +TEMA30 PT; -TURMERIC ROOT5000 GM PO; +TURMERIC ROOT5000 GM PT
[2023-12-30 23:20] LABS: Calcium, Ionized (POC) 1.33 mmol/L (1.10-1.46); Chloride (POC) 104 mmol/L (98-108); Creatinine (POC) 1.3 mg/dL (0.8-1.3); Glucose (ISTAT POC) 154 mg/dL (70-99); Hemoglobin (POC) 7.5 g/dL (13.5-17.5); Potassium (POC) 4.8 mmol/L (3.5-5.5); Sodium (POC) 136 mmol/L (135-148); Total CO2 (POC) 23 mmol/L (21-32)
[2023-12-30 23:25] LABS: BASOPHILS ABSOLUTE AUTO 0.03 K/mm3 (0.00-0.23); BASOPHILS PERCENT AUTO 0 % (0-2); EOSINOPHILS ABSOLUTE AUTO 0.03 K/mm3 (0.00-0.68); EOSINOPHILS PERCENT AUTO 0 % (0-6); Hematocrit 24.2 % (37.0-53.0); Hemoglobin 7.8 g/dL (13.5-17.5); IMMATURE GRAN ABSOLUTE AUTO 0.12 K/mm3 (0.00-0.10); IMMATURE GRAN PERCENT AUTO 1 % (0-1); LYMPHOCYTES ABSOLUTE AUTO 0.84 K/mm3 (0.84-5.20); LYMPHOCYTES PERCENT AUTO 5 % (21-46); MONOCYTES ABSOLUTE AUTO 1.28 K/mm3 (0.16-1.47); MONOCYTES PERCENT AUTO 8 % (4-13); Mean Corpuscular HGB 31.7 pg (26.0-34.0); Mean Corpuscular HGB Conc 32.2 g/dL (31.5-36.5); Mean Corpuscular Volume 98 fL (80-100); Mean Platelet Volume 9.5 fL (9.1-12.4); NEUTROPHILS ABSOLUTE AUTO 13.65 K/mm3 (1.96-9.15); NEUTROPHILS PERCENT AUTO 86 % (41-73); Platelet Count 207 K/mm3 (150-400); RDW Standard Deviation 64.6 fL (35.1-46.3); Red Blood Cell Count 2.46 M/mm3 (4.30-5.90); White Blood Cell Count 15.95 K/mm3 (4.00-11.30)
[2023-12-30 23:29] LABS: Base Excess Venous -4.3 mmol/L; Bicarbonate Venous 20.7 mmol/L (24.0-30.0); PCO2 Venous 41.1 mmHg (38-42); pH Blood Venous 7.33 (7.34-7.37)
[2023-12-30 23:47] LABS: International Normalized Ratio 1.12; Prothrombin Time Results 11.7 Sec (9.7-11.5)
[2023-12-30 23:54] LABS: Albumin, Blood 2.9 g/dL (3.4-5.0); Albumin/Globulin Ratio 0.7 (0.8-1.8); Bilirubin, Total 0.5 mg/dL (0.1-1.0); Bun/Creatinine Ratio 28.5 (12.0-20.0); Calcium, Blood 9.5 mg/dL (8.5-10.1); Creatinine, Blood 1.23 mg/dL (0.60-1.20); Globulin, Blood 4.3 g/dL (2.2-4.0); Magnesium, Blood 1.4 mg/dL (1.6-2.4); Phosphorus, Blood 2.5 mg/dL (2.5-4.9); Potassium, Blood 4.7 mmol/L (3.5-5.5); Thyroid Stimulating Hormone 1.05 uIU/mL (0.360-4.800); Total Protein, Blood 7.2 g/dL (6.4-8.2)
[2023-12-31 00:12] LABS: Influenza A, PCR NEGATIVE (NEGATIVE); Influenza B, PCR NEGATIVE (NEGATIVE); Resp Syncytial Virus, PCR NEGATIVE (NEGATIVE); SARS-Cov-2 (COVID-19) PCR, MMC NEGATIVE (NEGATIVE)
[2023-12-31 00:23] LABS: Source, Urine Straight Cath
[2023-12-31] MEDS ORDERED: NS 1,000 ML IV SCH (00:25)
[2023-12-31] MEDS ORDERED: Magnesium Sulf 2 GM/Water 50ML 50 ML IV ONE (00:25)
[2023-12-31 00:33] LABS: Bilirubin, Urine Neg (Neg); Blood, Urine 5+ (Neg); Glucose Qualitative, Urine Neg (Neg); Ketones, Urine 1+ (Neg); Leukocyte Esterase, Urine 3+ (Neg); Nitrite, Urine Pos (Neg); Protein, Urine 3+ (Neg); Urobilinogen, Urine NORM (Normal)
[2023-12-31 00:45] LABS: Appearance, Urine Cloudy (Clear); Color, Urine Red (P-Yellow); Red Blood Cells, Urine TNTC /hpf (0-2); White Blood Cells, Urine TNTC /hpf (0-5)
[2023-12-31 00:46] LABS: Amorphous Mod (0-Heavy); Bacteria Many /hpf; Squamous Epithelial Cells Rare /hpf (Few)
[2023-12-31] MEDS ORDERED: CefTRIAXone Sodium 1,000 MG in NS 50 ML IV ONE (00:50)
[2023-12-31] MEDS ORDERED: FLU VACC QS2023-24(6MOS UP)/PF 60 MCG/0.5 ML SYRINGE IM SCH (02:15)
[2023-12-31] MEDS ORDERED: Lactated Ringer's 1,000 ML IV ONE (02:55)
[2023-12-31 05:32] VITALS: BP 152/103
--- NOTE | 2023-12-31 05:45 | NUR ---
PT ARRIVED ON UNIT AT 0430. ANSWERS ORIENTATION QUESTIONS APPROPRIATELY , PLEASANT, COOPERATIVE WITH CARE. SOMEWHAT ANXIOUS, SEEMINGLY VERY FORGETFUL, POOR HISTORIAN. ADMISSION HX, MEDICATION RECONCILIATION UNABLE TO BE COMPLETED DUE TO THIS. PER ED REPORT, PT WAS ABLE TO BE REACHED UPON ARRIVAL TO ED AND WAS ABLE TO PROVIDE NECESSARY INFORMATION. WILL ENSURE DAY SHIFT RN IS AWARE AND ABLE TO REACH FOR NECESSARY INFORMATION. VITALS STABLE SINCE ARRIVAL, MAINTAINING SATURATION >92% ON ROOM AIR. TELE ON, RUNNING NSR WITH PVCs NO REPORTED CHEST PAIN PRESSURE. SCDs IN PLACE. EDUCATED ON FIRE/SMOKING POLICY, EDUCATED AUTOMOBILE DRIVERS LIGHT USE. PT BEDREST THUS FAR DUE TO WEAKNESS. PER ED REPORT, PT HAD 2 GLFs PRIOR TO ADMISSION. DESPITE THIS SKIN BROADLY INTACT OUTSIDE OF SMALL ABRASION ON TOES OF RIGHT FOOT. SOME MILD BLANCHABLE REDNESS ON BOTTOM. PT ABLE TO REST COMFORTABLY IN BED SINCE ADMISSION. HAS NOT USED CALL LIGHT THUS FAR BUT IS ABLE TO MAKE NEEDS KNOWN WHEN PROMPTED. BED LOCKED IN LOWEST POSITION. CALL LIGHT LEFT WITHIN REACH. CONTINUING TO MONITOR.
[2023-12-31 07:47] VITALS: BP 132/52
[2023-12-31] MEDS ORDERED: Lactobacil 2-S.Thermo-Bifido 1 1 Cap PO SCH (09:00)
--- NOTE | 2023-12-31 09:54 | NUR ---
THIS AM PT IS ALERT, ORIENTED TO PLACE, SELF, YEAR. PLEASANT MOOD, COOPERATIVE [facility] CARE. HE DENIES CHEST PAIN, HEART SOUNDS ARE CLEAR, NO EXTRA HEART SOUNDS HEARD. LUNG SOUNDS ARE COARSE T/O, HE IS ON ROOM AIR, NO RESPIRATORY DISTRESS NOTED, TALKING IN FULL SENTENCES, EVEN CHEST RISE AND FALL NOTED. HE DENIES CP OR SOB. ABD SOFT AND ROUND, REPORTS SOME DISCOMFORT TO PALPATION OVER BLADDER. PT WITH UNMEASURED VOID THIS AM IN ATTENDS THAT WAS DARK, CONDOM CATH PLACED. HE IS WELL ORIENTED BUT VERY FORGETFUL, HE DOES NOT USE THE CALL LIGHT APPROPRIATELY, HE IS IMPULSIVE ATTEMPTS TO EXIT CHAIR AND BED INTERMITTENTLY. THERE IS AN ABRASION IS NOTED TO RT TOES, PEDAL PULSES ARE FAINT, THEY ARE PALPABLE BUT WERE INITIALLY FOUND BY DOPPLER. HE IS ABLE TO MANAGE AN DIET THIS AM, SWALLOW INTACT, WAS ABLE TO TAKE PO MEDS WELL. DR PEREZ GAVE AN ORDER FOR DIET. HE WORKED WITH OCCUPATION AND PHYSICAL THERAPY THIS AM, HE DID SPEND A SHORT TIME IN CHAIR BEFORE HE ATTMEPTED TO EXIT THE CHAIR WITHOUT CALLING, HE WAS PLACED IN CHAIR BY OCCUAPTIONAL AND PHYSICAL THERAPY, NO CHAIR ALARM OR TAB ALARM WAS PLACED WHEN HE WAS PUT IN THE CHAIR. PT WAS ABLE TO TRANSFER SAFELY BACK TO WITH THIS RN AND PCT, HE IS HAVING A BED BATH AT THIS TIME. OMER LENNON. MELISSA WHO IS A PHYSICIAN FROM [employer] HAS CALLED AND ASKS THAT THE ATTENDING CALL HIM AT [phone]
[2023-12-31 11:39] VITALS: BP 104/53
--- NOTE | 2023-12-31 11:55 | NUR ---
PT REMAINS AFRBILE, HE IS SLEEPING. FREDERICKN. JESUS MANUELS.
[2023-12-31 11:57] LABS: Phosphorus, Blood 2.9 mg/dL (2.5-4.9)
--- NOTE | 2023-12-31 13:53 | NUR ---
DIET CHANGED TO VEGETARIAN
[2023-12-31] MEDS ORDERED: Acetaminophen 325 MG TABLET PO PRN (15:20)
[2023-12-31 16:41] VITALS: BP 162/57
--- NOTE | 2023-12-31 17:46 | NUR ---
PT IS NOW AFEBIRLE AFTER TYLENOL ADMINISTRATION. HE REMAINS SLEEPY, HE WAKES EASILY TO VERBAL STIMULI, HE IS ALERT. VSS. THERE ARE NO ACUTE CHANGES SINCE LAST NOTE ENTRY
[2023-12-31 19:49] VITALS: BP 136/46
--- NOTE | 2023-12-31 20:00 | NUR ---
ASSUMPTION OF CARE: THIS RN ASSUMED CARE OF PT AT APPROX 1900. PT ALERT, ORIENTED TO PERSON/PLACE/SITUATION. FORGETFUL AT TIMES ALTHOUGH ABLE TO MAKE NEEDS KNOWN TO STAFF. HR 70'S, SINUS W/ 1DEGREE AVB ON TELE. BP STABLE, MAP >65. DENIES CHEST PAIN/PRESSURE. SPO2 >90% ON RA, DENIES SOB. LUNG SOUNDS COARSE. AFEBRILE AT START OF SHIFT. PT W/ LARGE INCONTINENT VOID, TEA COLORED URINE NOTED. ATTENDS IN PLACE. ABLE TO STAND AT BEDSIDE W/ 1P ASSIST & FWW WHILE CHANGING ATTENDS. SCD'S IN PLACE FOR DVT PROPHYLAXIS. ABLE TO EAT SMALL AMOUNT OF DINNER, REPORTS EATING THE "SOFTER FOODS". ABLE TO SWALLOW PILLS W/ WATER W/O VISIBLE DIFFICULTY. NO OTHER NEEDS AT THIS TIME. CALL LIGHT IN REACH, BED ALARM ON FOR PT SAFETY.
[2023-12-31] MEDS ORDERED: Latanoprost 0.005% Opth Soln 2.5 ML BOTHEYES SCH (21:00)
[2023-12-31] MEDS ORDERED: Timolol 0.5% Opth Soln 5 ML BOTHEYES SCH (21:00)
[2023-12-31 23:45] VITALS: BP 120/83
[2023-12-31] MEDS ORDERED: NS 250 ML IV PRN (23:50)
[2024-01-01 03:07] VITALS: BP 159/77
--- NOTE | 2024-01-01 03:22 | NUR ---
PHYSICIAN CONTACT: THIS RN AT BEDSIDE TO ASSIST PT W/ REPOSITIONING & ATTENDS CHANGE. PT W/ AUDIBLE WHEEZE, TACHYPNEA, CIRCUMORAL CYANOSIS, DELAYED CAP REFILL, NUMBNESS/TINGLING IN EXTREMITIES. CALL PLACED TO DR. REYES REGARDING RESPIRATORY CHANGES. ORDERS RECEIVED FOR VBG, CPAP/BIPAP PROTOCOL (PT REPORTS WEARING CPAP AT NIGHT), AND BD PROTOCOL. RT KOFI TO BEDSIDE AT THIS TIME. SPO2 >90% ON RA. DIRECTOR PHONE UPDATED. HOB REMAINS ELEVATED, CONTINUOUS PULSE OXIMETRY IN PLACE.
[2024-01-01 03:53] LABS: Base Excess Venous -2.9 mmol/L; Bicarbonate Venous 22.1 mmol/L (24.0-30.0); PCO2 Venous 29.1 mmHg (38-42); pH Blood Venous 7.46 (7.34-7.37)
[2024-01-01] MEDS ORDERED: Vancomycin HCL 1,500 MG in NS 250 ML IV ONE (04:20)
[2024-01-01] MEDS ORDERED: Cefepime HCl 2,000 MG in NS 100 ML IV SCH ×2 (04:35→09:00)
[2024-01-01 04:49] LABS: BASOPHILS ABSOLUTE AUTO 0.01 K/mm3 (0.00-0.23); BASOPHILS PERCENT AUTO 0 % (0-2); EOSINOPHILS ABSOLUTE AUTO 0.01 K/mm3 (0.00-0.68); EOSINOPHILS PERCENT AUTO 0 % (0-6); Hematocrit 22.1 % (37.0-53.0); Hemoglobin 7.3 g/dL (13.5-17.5); IMMATURE GRAN ABSOLUTE AUTO 0.04 K/mm3 (0.00-0.10); IMMATURE GRAN PERCENT AUTO 0 % (0-1); LYMPHOCYTES ABSOLUTE AUTO 0.68 K/mm3 (0.84-5.20); LYMPHOCYTES PERCENT AUTO 6 % (21-46); MONOCYTES ABSOLUTE AUTO 0.77 K/mm3 (0.16-1.47); MONOCYTES PERCENT AUTO 7 % (4-13); Mean Corpuscular HGB 32.2 pg (26.0-34.0); Mean Corpuscular Volume 97 fL (80-100); Mean Platelet Volume 9.6 fL (9.1-12.4); NEUTROPHILS ABSOLUTE AUTO 9.28 K/mm3 (1.96-9.15); NEUTROPHILS PERCENT AUTO 86 % (41-73); Platelet Count 175 K/mm3 (150-400); RDW Coefficient Variation 18.3 % (11.7-14.2); RDW Standard Deviation 64.5 fL (35.1-46.3); Red Blood Cell Count 2.27 M/mm3 (4.30-5.90); White Blood Cell Count 10.79 K/mm3 (4.00-11.30)
--- NOTE | 2024-01-01 05:44 | NUR ---
END OF SHIFT NOTE: SEE PREVIOUS NOTES REGARDING OVERNIGHT EVENTS. VSS AT THIS TIME, RESPIRATIONS EVEN & UNLABORED. PT IS SITTING UP IN BED, RESTING BUT AWAKES EASILY TO STIMULI. AM TROPONIN 161, NOTIFIED, ORDERS RECEIVED FOR REPEAT DRAW AT 0745. PT DENIES CHEST PAIN/PRESSURE. CONTINUES TO HAVE LARGE INCONTINENT VOIDS, URINE REMAINS TEA COLORED W/ ODOR PRESENT. BLOOD CULTURE RESULTS RECEIVED THIS AM, NOTIFIED, ORDERS RECEIVED TO DC ROCEPHIN AND START VANCO & CEFEPIME. PT ASSISTED W/ REPOSITIONING/BOOSTS NEEDED, ABLE TO REPOSITION SELF FREQUENTLY. NO OTHER NEEDS AT THIS TIME, CALL LIGHT IN REACH.
[2024-01-01] MEDS ORDERED: CefTRIAXone Sodium 1,000 MG in NS 50 ML IV SCH (06:00)
[2024-01-01 11:56] VITALS: BP 110/59
--- NOTE | 2024-01-01 15:54 | NUR ---
PT IS ALERT, HE ANSWERS QUESTIONS APPROPRIATELY FOR NEURO EXAMS, BUT IS VERY FORGETFUL, AND A POOR HISTORIAN. HE IS ABLE TO CALL APPORPRIATELY FOR TOILETING. HE IS CALM AND PLEASANT WITH CARE. NO RESPIRATORY DISTRESS NOTED, EVEN CHEST RISE AND FALL NOTED, SPO2 97% ON RA, LS ARE COARSE T/O. HE DENIES CP OR SOB. SR c 1st DEGREE BLOCK 62 ON MONITOR. NO BM TODAY, HE IS URINATING WELL IN URINAL WITH PCT. ABD SOFT AND ROUND. SKIN PWD AND INTACT. VSS. NADN.
[2024-01-01] MEDS ORDERED: Enoxaparin 40 MG/0.4 ML SYR SC SCH (16:00)
[2024-01-01 17:55] VITALS: BP 116/69
--- NOTE | 2024-01-01 17:56 | NUR ---
PT'S CALLED AROUND 1700 SHE EXPRESSED UPSET THAT PT IS NPO HE ASPIRATED DURING SPEECH THERAPY EVALUALTION AND IS PENDING A BARIUM SWALLOW STUDY ON WEDNESDAY. SHE IS UPDATED ABOUT THIS AND CONTINUES TO ESCILATE, SHE STATES THAT SHE WOULD LIKE TO TALK TO THE ATTENDING DR CYR STATING "THIS IS NOT APPROPRIATE", SHE IS FURTHER EDUCATED THAT THE PT WAS MADE NPO RELATED TO SAFETY ISSUE HE IS NOT ABLE TO SWALLOW WELL WITHOUT SOME ASPIRATION. SHE STATES SHE WOULD LIKE TO SPEAK TO THE DR "SOMETHING NEEDS TO BE UNDONE" SHE IS EDUCATED AGAIN THAT THIS IS A SAFETY CONCERN, THAT MD WILL UPHOLD THE DECISION FOR SWALLOW STUDY. SHE THEN TURNS ATTENTION TO "EYE DROPS" STATING "SOMEONE ORDERED THE WRONG EYE DROPS AND NOW HE'S NOT GETTING THE RIGHT DROPS". SHE IS REMINDED THAT SHE HAD TOLD US LAST NIGHT "THE RIGHT LIST IS IN YOUR COMPUTER" AND WOULD NOT PROVIDE THIS RN WITH A LIST "IT'S IN THE COMPUTER", HIS MEDCIATIONS WERE THEN ORDERED PER THE LIST IN THE COMPUTER SINCE SHE STATES THESE ARE CORRECT. WHILE ON THE PHONE I ASKED HER TO CLARIFY THE "CORRECT" MEDICATIONS SHE WAS UNABLE TO PROVIDE ME WITH THE LIST SHE HAD JUST STATED THAT SHE HAD. SHE THEN REPORTS THAT SHE WILL CALL ME "RIGHT BACK". SHE DOES CALL BACK BUT DEMANDS TO SPEAK TO THE NURSING HIM SPECIALIST, JUAN A NURSING HIM SPECIALIST IS BRIEFED ABOUT CALL AND THEN HER CALL IS TRANSFERED TO HIS DESK. AT THE TIME OF THIS NOTE NO UPDATED LIST HAS BEEN PROVIDED BY "ZEE". SHE HAD ALSO EXPRESSED THAT SHE WAS ANGRY THAT DR CYR HAS NOT CALLED HER, IT WAS NEVER COMMUNICATED TO ME THAT SHE WANTED TO SPEAK TO THE DR DURING ANY OF OUR CORRESPONDENCES. SHE THEN EXPRESSED THAT SHE IS ANGRY THAT HAS NOT CALLED "HIS NEPHEW CEDRIC", CEDRIC IS NOT A LISTED CONTACT ON PT'S CHART. JUAN A NURSING HIM SPECIALIST CALLED ME BACK AFTER SPEAKING TO ZEE, SHE ALSO ATTEMPTED TO EDUCATE THE "ZEE", HE CONCURRS THAT EDUCATION IS NOT SUCCESSFUL. SHE WAS ALSO NOT ABLE TO SHARE AN UPDATED LIST WITH JUAN A STATING "THEY ARE IN THE COMPUTER". SHE TOLD JUAN A THAT SOMEONE MIGHT BE BRINING THE EYE DROPS THAT SHE STATES ARE CORRECT, WE ARE UNSURE THEN THIS MAY OCCUR
--- NOTE | 2024-01-01 18:19 | NUR ---
PT REPORTS UNDERSTANDING OF BARIUM SWALLOW STUDY ON WEDNESDAY, HE STATES THAT HE UDNERSTANDS OF THAT HE WILL BE ABLE TO HAVE ICE CHIPS, HE IS EATING ICE CHIPS THIS CONVERSATION IS OCCURING.
[2024-01-01 20:00] VITALS: BP 165/73
--- NOTE | 2024-01-01 22:41 | NUR ---
ASSUMPTION OF CARE: PATIENT A/O X 3-4. ANSWERS QUESTIONS APPRORPIATELY SLOWER WEAKER SPEECH AT THIS TIME. IS MORE ALERT THAN WHEN I INTERACTED WITH THE PATIENT LAST NIGHT. ABLE TO MAKE NEEDS KNOWN, NOT IMPULSIVE AT THIS TIME. SPO2 >95% WHILE SLEEPING. DENIES CHEST PAIN PRESSURE OR SOB. TROP TRENDING UP THIS AM WITH MINOR T WAVE ABNORMAILTY THAT HAS BEEN SINCE ADMISSION. PATIENT TROP AND BNP OBTAINED AFTER ASKING THE RESIDENT. BNP ELEVATED IN THE ~249 WHILE THE TROPONIN WAS TRENDED DOWN. NO IMMEDIATE CONCERNS, WILL CONTINUE TO MONITOR UNTIL SHIFT CHANGE.
[2024-01-02] VITALS (13 sets, daily range): BP systolic 138–190; BP diastolic 62–91
[2024-01-02] MEDS ORDERED: Vancomycin HCL 1,250 MG in NS 250 ML IV SCH (05:00)
[2024-01-02 05:37] LABS: BASOPHILS ABSOLUTE AUTO 0.02 K/mm3 (0.00-0.23); BASOPHILS PERCENT AUTO 0 % (0-2); EOSINOPHILS ABSOLUTE AUTO 0.06 K/mm3 (0.00-0.68); EOSINOPHILS PERCENT AUTO 1 % (0-6); Hematocrit 23.5 % (37.0-53.0); Hemoglobin 7.6 g/dL (13.5-17.5); IMMATURE GRAN ABSOLUTE AUTO 0.04 K/mm3 (0.00-0.10); IMMATURE GRAN PERCENT AUTO 1 % (0-1); LYMPHOCYTES ABSOLUTE AUTO 0.63 K/mm3 (0.84-5.20); LYMPHOCYTES PERCENT AUTO 8 % (21-46); MONOCYTES ABSOLUTE AUTO 0.77 K/mm3 (0.16-1.47); MONOCYTES PERCENT AUTO 10 % (4-13); Mean Corpuscular HGB 31.9 pg (26.0-34.0); Mean Corpuscular HGB Conc 32.3 g/dL (31.5-36.5); Mean Corpuscular Volume 99 fL (80-100); NEUTROPHILS ABSOLUTE AUTO 5.96 K/mm3 (1.96-9.15); NEUTROPHILS PERCENT AUTO 80 % (41-73); RDW Coefficient Variation 18.3 % (11.7-14.2); RDW Standard Deviation 65.1 fL (35.1-46.3); Red Blood Cell Count 2.38 M/mm3 (4.30-5.90); White Blood Cell Count 7.48 K/mm3 (4.00-11.30)
[2024-01-02 05:46] LABS: Mean Platelet Volume 9.9 fL (9.1-12.4); Platelet Count 183 K/mm3 (150-400)
[2024-01-02 05:53] LABS: Albumin, Blood 2.6 g/dL (3.4-5.0); Albumin/Globulin Ratio 0.6 (0.8-1.8); Bilirubin, Total 0.5 mg/dL (0.1-1.0); Bun/Creatinine Ratio 40.7 (12.0-20.0); Calcium, Blood 10.2 mg/dL (8.5-10.1); Creatinine, Blood 0.93 mg/dL (0.60-1.20); Globulin, Blood 4.2 g/dL (2.2-4.0); Potassium, Blood 4.5 mmol/L (3.5-5.5); Total Protein, Blood 6.8 g/dL (6.4-8.2)
--- NOTE | 2024-01-02 07:33 | NUR ---
NO CHANGES FROM ASSUMPTION DENIES CHEST PAIN PRESSURE OR SOB. RECOMMEND BOWEL CARE MEDS, HE HAD A HARD BM LARGE. NO BLOOD. ENDORSES HE TYPICALLY TAKES BM MEDS AT HOME, UNSURE OF WHICH. PATIENT HAS BEEN COOPERATIVE PLEASANT, NO CONCERNS FROM THIS RN. BESIDES ABOVE.
--- NOTE | 2024-01-02 11:38 | NUR ---
PT HAD CEFTRIAXONE IN ED WITHOUT ISSUES, CONFIRMED WITH PHARMACY, PT REPORTS THAT HE HAS HAS OTHER "CILLINS" IN THE PAST WITHOUT ISSUE, HE STS THAT RASH FORMED WITH A PENICILLIN WHEN HE WAS YOUNG
--- NOTE | 2024-01-02 11:57 | NUR ---
PT IS ALERT, HE IS ORIENTED X3. HE IS PLEASANT AND COOPERATIVE WITH CARE. HE REPORTS THAT HAD SOMEONE BRING HIS MEDCIATION LIST IN, UPON REVIEWING IT WITH THE PATIENT IT WAS NOTED THAT THE MEDICATION LIST IS OLD FROM AUGUST, HIS EYE DROPS ARE NOT CORRECT ON THIS LIST. DROPS WERE ALSO BROUGHT IN BY A FRIEND THE DROPS ARE NOT IN A BOX THEY DO NOT HAVE ANY PATIENT IDENTIFIERS ON THEM OR DIRECTIONS. LUNG SOUNDS ARE COARSE T/O, NO RESPIRATORY DISTRESS NOTED, EVEN CHEST RISE AND FALL NOTED, CHEST IS SYMMERTRICAL. HEART SOUNDS ARE CLEAR, DENIES CP, PT WITH SR AND RUNS OF TRI/BIGEMINY NOTED ON MONITOR. ABD IS SOFT TO FIRM, WITH PAIN TO PALPATION OVER BLADDER, HE HAS A HISTORY OF BLADDER CANCER. HE IS CONTINUING TO PRODUCE DARK FOWL SMELLING URINE, HE IS USING URINAL TO VOID. HE IS CALLING APPROPRIATELY FOR URINAL USE. HE IS UP WITH GAIT BELT, FWW, AND 1 PERSON ASSIST T.O THE DAY. ATTENDS IN PLACE. VSS.
[2024-01-02] MEDS ORDERED: Furosemide 10 MG/ML 4ML Vial IV ONE ×2 (14:20→22:10)
--- NOTE | 2024-01-02 14:25 | NUR ---
TRANSFUSION ORDERS CONFIRMED WITH DR CYR THAT WE WILL TRANSFUSE WITH [facility]GB LESS THAN 8. BLOOD BANK IS AWARE
--- NOTE | 2024-01-02 16:49 | NUR ---
BLOOD IS TRANFUSING WELL AT THIS TIME, CLEAR SOUNDS ARE MORE CLEAR AT THIS TIME. NO CHANGE IN RESPIRATORY STATUS, NO CHANGE IN MENTATION.
--- NOTE | 2024-01-02 18:49 | NUR ---
REPORT TO ELVA Guzman ON MEDICAL FLOOR. PT WILL BE TRANSFERED TO [facility] AFTER SHIFT CHANGE TONIGHT. BLOOD IS TRANFUSING AT 125ML/HR AT THIS TIME. NO CHANGE IN SREPISRATORY STATUS, AFEBRILE, LUNGS CLEAR. HE REMAINS ALERT ANSWERING QUESTIONS ARPPROPRIATELY. ATTENDED CHANGED, LINENS CHANGED. NEW IV PLACED. MEDICAL FLOOR NURSE AWARE ABOUT HX NOT UPDATED IN COMPUTER WE HAVE NOT BEEN ABLT TO OBTAIN AN ACCURATE MEDICATION LIST OR HX.
[2024-01-02] MEDS ORDERED: CefTRIAXone Sodium 1,000 MG in NS 50 ML IV SCH (21:00)
--- NOTE | 2024-01-02 23:07 | NUR ---
2044: ASSUMED CARE OF PT. ARRIVED TO THE UNIT VIA BED, BEDS SWAPPED. PT HAS HIS SECOND UNIT OF BLOOD TRANFUSING AT THIS TIME. PIV TO UPPER RIGHT ARM OCCLUDED UPON ARRIVAL. INFILTRATED WITH FLUSH. BLOOD IS PAUSED FOR APPROX. 15MIN FOR NEW POWERGLIDE PLACEMENT TO LEFT UPPER ARM. BLOOD TRANSFUSION FINISHED WITHOUT FURTHER COMPLICATION. PT TOLERATED WELL. ORDER FOR CEFTRIAXONE WITH ALLERGY TO PCN. CALL TO PROVIDER TO VERIFY, PER HOSPITALIST OK TO GIVE. PT TOLERATED WELL WITHOUT REACTION. HTN IMPROVING WITH LASIX POST TRANSFUSION. PT ORIENTED TO ROOM, AND CALL LIGHT. INCONTINENCE WITH BLOOD IN THE URINE THAT PT STATES HAS BEEN HIS BASELINE WITH HIS BLADDER CANCER FOR THE PAST FEW MONTHS, CONFIRMED BY WHO IS ON THE PHONE. BED ALARM IS ON. PERSONAL BELONGINGS WITHIN REACH.
--- NOTE | 2024-01-03 03:59 | NUR ---
PT TOLERATED BLOOD TRANSFUSION AND ROCEPHIN WELL. NO S/S OF REACTION/INTOLERANCE. INCONTINENT OF URINE. URINE DEVORAH/RED, HISTORY OF HEMATURIA. HTN INCREASED WIT BLOOD TRANSFUSTION, IMPROVING POST LASIX ADMINISTRATION. PT WAS ABLE TO SLEEP MUCH OF THE NIGHT. REPORTS NOT SLEEPING WELL THE PAST FEW DAYS. REFUSES CPAP OR SEWAGE SCREEN OPERATOR. EDUCATED ON USE, PT DECLINES. NO FURTHER INCIDENT SHIFT. SAFETY MEASURES TAKEN WITH BED ALARM ON. CALL LIGHT WTIHIN REACH. ALL NEEDS ADDRESSED.
[2024-01-03 04:02] VITALS: BP 188/91
[2024-01-03] MEDS ORDERED: HydrALAZINE HCl 20 MG / ML 1ML Vial IV PRN (05:30)
--- NOTE | 2024-01-03 05:32 | NUR ---
0530: PT REMAINS HYPERTENSIVE AND NON SYMPTOMATIC, CALL TO HOSPITALIST. PRN ORDERS RECIEVED.
[2024-01-03 05:45] LABS: BASOPHILS ABSOLUTE AUTO 0.03 K/mm3 (0.00-0.23); BASOPHILS PERCENT AUTO 0 % (0-2); EOSINOPHILS PERCENT AUTO 0 % (0-6); Hematocrit 30.2 % (37.0-53.0); Hemoglobin 10.3 g/dL (13.5-17.5); IMMATURE GRAN ABSOLUTE AUTO 0.04 K/mm3 (0.00-0.10); IMMATURE GRAN PERCENT AUTO 0 % (0-1); LYMPHOCYTES ABSOLUTE AUTO 0.87 K/mm3 (0.84-5.20); LYMPHOCYTES PERCENT AUTO 8 % (21-46); MONOCYTES ABSOLUTE AUTO 1.15 K/mm3 (0.16-1.47); MONOCYTES PERCENT AUTO 10 % (4-13); Mean Corpuscular HGB 31.7 pg (26.0-34.0); Mean Corpuscular HGB Conc 34.1 g/dL (31.5-36.5); Mean Platelet Volume 9.4 fL (9.1-12.4); NEUTROPHILS ABSOLUTE AUTO 9.16 K/mm3 (1.96-9.15); NEUTROPHILS PERCENT AUTO 81 % (41-73); Platelet Count 197 K/mm3 (150-400); RDW Coefficient Variation 17.1 % (11.7-14.2); RDW Standard Deviation 57.2 fL (35.1-46.3); Red Blood Cell Count 3.25 M/mm3 (4.30-5.90); White Blood Cell Count 11.25 K/mm3 (4.00-11.30)
[2024-01-03 05:55] LABS: Mean Corpuscular Volume 93 fL (80-100)
[2024-01-03 06:23] VITALS: BP 165/85
[2024-01-03 06:24] LABS: Albumin, Blood 2.5 g/dL (3.4-5.0); Albumin/Globulin Ratio 0.5 (0.8-1.8); Bilirubin, Total 0.6 mg/dL (0.1-1.0); Bun/Creatinine Ratio 32.7 (12.0-20.0); Calcium, Blood 10.4 mg/dL (8.5-10.1); Creatinine, Blood 1.53 mg/dL (0.60-1.20); Globulin, Blood 4.6 g/dL (2.2-4.0); Potassium, Blood 4.3 mmol/L (3.5-5.5); Total Protein, Blood 7.1 g/dL (6.4-8.2)
[2024-01-03 07:27] VITALS: BP 148/84
[2024-01-03] MEDS ORDERED: Temazepam 15 MG Cap PO PRN (12:10)
[2024-01-03] MEDS ORDERED: FentaNYL Citrate 50 MCG/ML 2 ML Injection IV PRN (12:10)
[2024-01-03 14:41] VITALS: BP 154/72
--- NOTE | 2024-01-03 15:39 | NUR ---
CALLED CALLED TO NOTIFY OF PT'S CHANGE IN MENTAL STATUS AND INCREASED CONFUSION T/O SHIFT. PT VSS AND W/O STROKE LIKE SYMPTOMS. PER , HOLD FENTANYL AND REPORT ACUTE CHANGES.
--- NOTE | 2024-01-03 15:43 | NUR ---
BLOOD SUGAR CHECKED PT'S BLOOD SUGAR DUE TO CHANGE IN MENTAION AND NPO STATUS. BLOOD SUGAR 167.
--- NOTE | 2024-01-03 17:49 | NUR ---
SHIFT SUMMARY PT A&OX2-3, CHANGED FROM ASSESSMENT THIS AM. PT EXPERIENCED CHANGE IN MENTATION/CONFUSION T/O SHIFT AND ATTEMPTED TO GET OUT OF BED BY HIMSELF TO SEARCH FOR A FRIEND. PT WAS REORIENTED AND WAS ASSISTED BACK INTO BED. NOTIFIED OF CHANGE IN MENTATION AND CONFUSION, SEE PREVIOUS NOTES. PT HAD BARIUM SWALLOW THIS AM, SEE SPEECH THERAPY NOTE. PT CONT TO BE NPO W/ NON PO MEDS. PT DECLINED OT AND STATED THAT HE WAS TOO CONFUSED AND REQUESTED OT TO SEE HIM TOMORROW. CALL LIGHT WITHIN REACH AND BED ALARM ON.
[2024-01-03 21:00] VITALS: BP 149/76
[2024-01-03] MEDS ORDERED: Atorvastatin 40 MG Tab PO SCH (21:00)
[2024-01-04 04:32] VITALS: BP 115/61
[2024-01-04 05:39] LABS: BASOPHILS ABSOLUTE AUTO 0.02 K/mm3 (0.00-0.23); BASOPHILS PERCENT AUTO 0 % (0-2); EOSINOPHILS PERCENT AUTO 0 % (0-6); Hematocrit 27.6 % (37.0-53.0); Hemoglobin 9.4 g/dL (13.5-17.5); IMMATURE GRAN ABSOLUTE AUTO 0.05 K/mm3 (0.00-0.10); IMMATURE GRAN PERCENT AUTO 0 % (0-1); LYMPHOCYTES ABSOLUTE AUTO 1.04 K/mm3 (0.84-5.20); LYMPHOCYTES PERCENT AUTO 8 % (21-46); MONOCYTES PERCENT AUTO 7 % (4-13); Mean Corpuscular HGB Conc 34.1 g/dL (31.5-36.5); Mean Corpuscular Volume 94 fL (80-100); Mean Platelet Volume 10.1 fL (9.1-12.4); NEUTROPHILS ABSOLUTE AUTO 11.52 K/mm3 (1.96-9.15); NEUTROPHILS PERCENT AUTO 85 % (41-73); Platelet Count 204 K/mm3 (150-400); RDW Coefficient Variation 17.5 % (11.7-14.2); RDW Standard Deviation 59.2 fL (35.1-46.3); Red Blood Cell Count 2.94 M/mm3 (4.30-5.90); White Blood Cell Count 13.63 K/mm3 (4.00-11.30)
[2024-01-04 07:01] LABS: Albumin, Blood 2.3 g/dL (3.4-5.0); Albumin/Globulin Ratio 0.5 (0.8-1.8); Bilirubin, Total 0.6 mg/dL (0.1-1.0); Bun/Creatinine Ratio 29.6 (12.0-20.0); Calcium, Blood 10.2 mg/dL (8.5-10.1); Creatinine, Blood 2.43 mg/dL (0.60-1.20); Globulin, Blood 4.4 g/dL (2.2-4.0); Total Protein, Blood 6.7 g/dL (6.4-8.2)
[2024-01-04 08:30] VITALS: BP 139/69
[2024-01-04] MEDS ORDERED: Tamsulosin HCl 0.4 MG Cap PO SCH (09:00)
[2024-01-04] MEDS ORDERED: Lisinopril 20 MG Tab PO SCH (09:00)
[2024-01-04] MEDS ORDERED: NS 1,000 ML IV SCH (09:55)
[2024-01-04 12:10] VITALS: BP 152/71
--- NOTE | 2024-01-04 12:44 | NUR ---
PLAN OF CARE PT C/O 5 OUT OF 10 PAIN TO HIS LOWER AND UPPER BACK DURING ASSESSMENT THIS AM. IV FENTANYL AND PO TYLENOL ON EMAR. PT NPO AND HAD INCREASED CONFUSION AND ANXIETY AFTER IV FENTANYL ADMINISTRATION YESTERDAY. THIS NURSE SPOKE TO DURING HIS AM ROUNDING ABOUT NEW ORDER FOR ALTERNATIVE PAIN MEDICATION. NO NEW ORDERS GIVEN. PER PROVIDER, OK TO GIVE PO TYLENOL, ALLOW PO WATER INTAKE, AND EDUCATE PT ON DOBHOFF. PT WAS PROVIDED W/ HEATING PAD AND REPOSITIONED. THIS NURSE EDUCATED PT ON DOBHOFF AND PT APPEARED TO DISPLAY A BLANK STARE DURING TEACHING. PT WAS PROVIDED W/ ADDITIONAL EDUCATION ABOUT ASPIRATION AND THE RISKS. PT STATED, "CAN I HAVE A DRINK OF WATER?" AFTER EDUCATION TEACHING AND WAS UNABLE TO DEMONSTRATE UNDERSTANDING TO THE EDUCATION TEACHINGS PROVIDED. THIS NURSE CALLED TO NOTIFY AND EXPRESS CONCERNS REGARDING PO INTAKE AND PT'S MENTAL STATUS. PER PROVIDER, OK TO GIVE PO TYLENOL AND WATER INTAKE. THIS NURSE REQUESTED A PALLIATIVE CARE CONSULT W/ PROVIDER'S OK AND DID NOT PROVIDE PT W/ PO TYLENOL OR WATER INTAKE. TACK WELDER WAS NOTIFIED.
--- NOTE | 2024-01-04 15:39 | NUR ---
CALLED CALLED TO NOTIFY OF PT'S BLADDER SCAN OF 933 ML. BLADDER SCAN DONE DUE TO PT VERBALIZING TO PHYSICAL THERAPY THAT HE FELT URGENCY W/ LITTLE OUTPUT. PER PROVIDER ORDER, SHUKLA CATHETER PLACED.
[2024-01-04 16:31] VITALS: BP 131/51
--- NOTE | 2024-01-04 16:58 | NUR ---
DISCUSSED CASE WITH BEDSIDE RN AND SPEECH THERAPY. MET WITH RC AND DISCUSSED HIS VIEWS ON WHERE HE IS MEDICALLY. HE IS CURRENTLY NPO AWAITING SURGICAL CONSULT. HE ASKED FOR ICE CHIPS OR A DRINK OF WATER SEVERAL TIMES DURING THIS VISIT. WE DISCUSSED HIS FEELINGS ABOUT HAVING A PEG TUBE PLACED, HE WAS WILLING TO HAVE THE PROCEDURE. DEEDEE AARON AND I CALLED DR. ROMERO AND DISCUSSED CASE WITH HIM. WE CALLED ZEE (SPOUSE) AND NEPHEW CEDRIC ON THE PHONE. WE DISCUSSED PROGNOSTICATION OF RC.
--- NOTE | 2024-01-04 18:30 | NUR ---
SHIFT SUMMARY PT A&O TO SELF, PERSON, PLACE, AND MONTH/YEAR. PT REQUIRED REORIENTATION TO CURRENT SITUATION AND GETS CONFUSED EASILY. PT CONT TO HAVE INTERMITTENT CONFUSION. SPEECH THERAPY ROUNDED ON PT AND ASSESSMENT REMAINS UNCHANGED, SEE SPEECH THERAPY NOTE. PALLIATIVE CARE SPOKE W/ PT THIS SHIFT. PT HAS SHUKLA IN PLACE THAT IS PATENT AND DRAINING TO GRAVITY W/ HEMATURIA, SEE PREVIOUS NOTE. NO OTHER ACUTE CHANGES FROM PREVIOUS NOTES THIS SHIFT. CALL LIGHT IS WITHIN REACH.
[2024-01-04 20:02] VITALS: BP 130/53
[2024-01-05 06:03] VITALS: BP 145/58
--- NOTE | 2024-01-05 06:20 | NUR ---
Shift Summary Pt AOx4 with some confusion during conversations. He states his back pain is much improved after introduction of the heating pad. Onofre in place and patent, urine was dark red at the end of the shift and is currently orange. He is strict NPO per ST notes, held all PO meds. He slept well t/o most of the night. Pt performs his own oral care using sponge and cup of water.
[2024-01-05 07:21] VITALS: BP 126/66
[2024-01-05] MEDS ORDERED: HYDROmorphone HCl/Pf 1MG SYR IV PRN (07:55)
[2024-01-05] MEDS ORDERED: Enoxaparin 30 MG/0.3 ML SYR SC SCH (09:00)
[2024-01-05 09:04] LABS: BASOPHILS ABSOLUTE AUTO 0.02 K/mm3 (0.00-0.23); BASOPHILS PERCENT AUTO 0 % (0-2); EOSINOPHILS ABSOLUTE AUTO 0.15 K/mm3 (0.00-0.68); EOSINOPHILS PERCENT AUTO 2 % (0-6); Hematocrit 22.6 % (37.0-53.0); Hemoglobin 7.6 g/dL (13.5-17.5); IMMATURE GRAN ABSOLUTE AUTO 0.06 K/mm3 (0.00-0.10); IMMATURE GRAN PERCENT AUTO 1 % (0-1); LYMPHOCYTES ABSOLUTE AUTO 1.15 K/mm3 (0.84-5.20); LYMPHOCYTES PERCENT AUTO 12 % (21-46); MONOCYTES ABSOLUTE AUTO 0.85 K/mm3 (0.16-1.47); MONOCYTES PERCENT AUTO 9 % (4-13); Mean Corpuscular HGB 32.2 pg (26.0-34.0); Mean Corpuscular HGB Conc 33.6 g/dL (31.5-36.5); Mean Corpuscular Volume 96 fL (80-100); Mean Platelet Volume 9.8 fL (9.1-12.4); NEUTROPHILS ABSOLUTE AUTO 7.04 K/mm3 (1.96-9.15); NEUTROPHILS PERCENT AUTO 76 % (41-73); Platelet Count 163 K/mm3 (150-400); RDW Coefficient Variation 17.8 % (11.7-14.2); RDW Standard Deviation 60.9 fL (35.1-46.3); Red Blood Cell Count 2.36 M/mm3 (4.30-5.90); White Blood Cell Count 9.27 K/mm3 (4.00-11.30)
[2024-01-05 09:30] LABS: Albumin, Blood 2.1 g/dL (3.4-5.0); Albumin/Globulin Ratio 0.6 (0.8-1.8); Bilirubin, Total 0.5 mg/dL (0.1-1.0); Bun/Creatinine Ratio 47.7 (12.0-20.0); Calcium, Blood 9.5 mg/dL (8.5-10.1); Creatinine, Blood 1.28 mg/dL (0.60-1.20); Globulin, Blood 3.7 g/dL (2.2-4.0); Potassium, Blood 3.5 mmol/L (3.5-5.5); Total Protein, Blood 5.8 g/dL (6.4-8.2)
[2024-01-05] MEDS ORDERED: Enoxaparin 40 MG/0.4 ML SYR SC SCH (09:45)
[2024-01-05] MEDS ORDERED: D5W-1/2NS 1,000 ML IV SCH (10:45)
[2024-01-05] MEDS ORDERED: Lactated Ringer's 1,000 ML IV SCH (13:00)
[2024-01-05 13:06] VITALS: BP 154/64
--- NOTE | 2024-01-05 13:11 | NUR ---
History, Chart, Medications and Allergies reviewed before start of procedure. Lungs clear T/O to Auscultation. Patient confirms NPO status and agrees with scheduled surgery. Pre-Op teaching done. Pt verbalizes understanding. Pt is oriented to self and place but not current events or year. Pt family called for consent for anesthesia and procedure.
[2024-01-05] MEDS ORDERED: propofoL 20 ML IV ONE (13:18)
[2024-01-05] MEDS ORDERED: propofoL 40 ML IV ONE (13:34)
[2024-01-05] MEDS ORDERED: CeFAZolin Sodium 2,000 MG in NS 50 ML IV ONE (13:35)
--- NOTE | 2024-01-05 13:35 | NUR ---
01/05/24 1335 Allan Patel MONITOR INTACT WITH CONTINUOUS PULSE OXIMETRY, CONTINUOUS END TITAL CO2, AND INTERMITTENT BLOOD PRESSURE. CONTINUOUS EKG MAC PER DR. WU
[2024-01-05 14:16] VITALS: BP 181/73
--- NOTE | 2024-01-05 14:41 | NUR ---
PT ASKING WHEN HE WILL BE ABLE TO DRINK WATER. PER DR. ROMERO. KEEP NPO. DR. ROMERO WILL DISCUSS WITH PT TOMORROW. PT REPORTING ABDOMINAL PAIN 04/07. TREATED PER EMAR. KOHC NOTIFIED THAT HE WAS BACK IN ROOM.
[2024-01-05 16:23] LABS: Hematocrit 24.8 % (37.0-53.0); Hemoglobin 8.1 g/dL (13.5-17.5)
--- NOTE | 2024-01-05 17:06 | NUR ---
spoke with mack and dr. malone. mack will be in pt room at 1130 tomorrow to meet with dr. malone.
--- NOTE | 2024-01-05 17:37 | NUR ---
PT DID WELL AFTER TUBE PLACEMENT. 04/07 ABDOMEN PAIN. TREATED PER EMAR. PT WANTS TO DRINK WATER. PER DR. ROMERO, KEEP NPO, WILL TALK WITH PT AND ZEE TOMORROW. PT WAS ABLE TO STAND AT SIDE OF BED WITH ASSISTANCE. HE IS WEAK AND UNSTEADY. IV FLUIDS RUNNING. WILL START TUBE FEEDS TOMORROW. ALERT AND ORIENTED X3. R.A. ABLE TO MAKE NEEDS KNOWN.
--- NOTE | 2024-01-05 18:08 | NUR ---
ZEE IS AT BEDSIDE WITH PT. PT IS UPSET THAT HE WAS TOLD HE COULD HAVE ICE CHIPS AFTER TUBE PLACEMENT, EDUCATED PT ON RISKS OF ASPIRATION. PT STATED THAT HE WILL HAVE ICE CHIPS REGARDLESS. PT AND ZEE VERBALIZED UNDERSTANDING OF ASPIRATION RISK. HE STATED THAT HE "MADE HIS CHOICE" AND WILL EAT ICE CHIPS. PT HOB IS 90 DEGREES. PT ATE ABOUT 10 ICE CHIPS WITHOUT COUGHING OR CHOKING.
[2024-01-05 19:33] VITALS: BP 163/69
[2024-01-06 03:20] VITALS: BP 162/65
--- NOTE | 2024-01-06 04:59 | NUR ---
CALLED HOSPITALIST INFORMED HIM OF TELEMETRY REPORTED VTACH. WE HAVE ORDERED A [facility] LAB FOR THIS PATIENT THIS MORNING.
--- NOTE | 2024-01-06 05:00 | NUR ---
SHIFT SUMMARY ADMITTED COMPLICATED UTI. LIMITED CODE: DNI. PLAN IS FOR PLACEMENT. D5 1/2 NS INFUSING ORDERED. PEG TUBE PLACED ON AM SHIFT YESTERDAY. WE WILL BEGIN TUBE FEEDINGS TODAY. POWERGLIDE IN PLACE. PATIENT IS NPO. SHUKLA IN PLACE FOR RETENTION. TELEMETRY: NSR @ 65 BPM. TWO EPISODES OF VTACH REPORTED. DURING BOTH EPISODES THE PATIENT WAS ACTIVELY COUGHING AND DENIED CHEST PAIN. SEE PREVIOUS NOTES. MAGNESIUM LAB ORDERED. 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 HE IS A&O X3, BUT CONFUSED AT TIMES. ON RA.
[2024-01-06 05:54] LABS: BASOPHILS ABSOLUTE AUTO 0.03 K/mm3 (0.00-0.23); BASOPHILS PERCENT AUTO 0 % (0-2); EOSINOPHILS ABSOLUTE AUTO 0.27 K/mm3 (0.00-0.68); EOSINOPHILS PERCENT AUTO 3 % (0-6); Hematocrit 23.8 % (37.0-53.0); Hemoglobin 7.8 g/dL (13.5-17.5); IMMATURE GRAN ABSOLUTE AUTO 0.05 K/mm3 (0.00-0.10); IMMATURE GRAN PERCENT AUTO 1 % (0-1); LYMPHOCYTES ABSOLUTE AUTO 1.23 K/mm3 (0.84-5.20); LYMPHOCYTES PERCENT AUTO 15 % (21-46); MONOCYTES ABSOLUTE AUTO 0.82 K/mm3 (0.16-1.47); MONOCYTES PERCENT AUTO 10 % (4-13); Mean Corpuscular HGB 32.2 pg (26.0-34.0); Mean Corpuscular HGB Conc 32.8 g/dL (31.5-36.5); Mean Corpuscular Volume 98 fL (80-100); NEUTROPHILS ABSOLUTE AUTO 6.11 K/mm3 (1.96-9.15); NEUTROPHILS PERCENT AUTO 72 % (41-73); Platelet Count 191 K/mm3 (150-400); Red Blood Cell Count 2.42 M/mm3 (4.30-5.90); White Blood Cell Count 8.51 K/mm3 (4.00-11.30)
[2024-01-06 06:28] LABS: Magnesium, Blood 1.9 mg/dL (1.6-2.4)
[2024-01-06 06:29] LABS: Albumin, Blood 2.2 g/dL (3.4-5.0); Albumin/Globulin Ratio 0.6 (0.8-1.8); Bilirubin, Total 0.6 mg/dL (0.1-1.0); Calcium, Blood 9.8 mg/dL (8.5-10.1); Creatinine, Blood 0.81 mg/dL (0.60-1.20); Globulin, Blood 3.7 g/dL (2.2-4.0); Potassium, Blood 3.1 mmol/L (3.5-5.5); Total Protein, Blood 5.9 g/dL (6.4-8.2)
[2024-01-06 07:25] VITALS: BP 149/60
[2024-01-06] MEDS ORDERED: Potassium Chloride 40 MEQ in NS 250 ML IV STA (09:19)
[2024-01-06] MEDS ORDERED: Dextrose 5% 1,000 ML IV SCH (09:25)
[2024-01-06 11:34] LABS: Bun/Creatinine Ratio 46.2 (12.0-20.0); Calcium, Blood 9.1 mg/dL (8.5-10.1); Creatinine, Blood 0.82 mg/dL (0.60-1.20); Potassium, Blood 2.9 mmol/L (3.5-5.5)
[2024-01-06 14:22] LABS: Bun/Creatinine Ratio 48.7 (12.0-20.0); Calcium, Blood 9.8 mg/dL (8.5-10.1); Creatinine, Blood 0.76 mg/dL (0.60-1.20); Potassium, Blood 3.2 mmol/L (3.5-5.5)
[2024-01-06 16:29] VITALS: BP 181/71
[2024-01-06] MEDS ORDERED: Potassium Chloride 40 MEQ in NS 250 ML IV ONE (16:45)
[2024-01-06] MEDS ORDERED: Magnesium Hydroxide Conc 10 ML UDC PT PRN (17:10)
[2024-01-06] MEDS ORDERED: Docusate Sodium 100 MG UDC PT PRN (17:10)
[2024-01-06] MEDS ORDERED: Bisacodyl 10 MG Supp PR PRN (17:15)
[2024-01-06 17:44] VITALS: BP 157/60
[2024-01-06 18:00] LABS: Bun/Creatinine Ratio 44.9 (12.0-20.0); Calcium, Blood 9.5 mg/dL (8.5-10.1); Creatinine, Blood 0.74 mg/dL (0.60-1.20); Potassium, Blood 3.3 mmol/L (3.5-5.5)
[2024-01-06 19:12] VITALS: BP 152/60
--- NOTE | 2024-01-06 19:32 | NUR ---
FIRST TUBE FEEDING STARTED AT 1815 TODAY. PT NERVOUS WITH MANY QUESTIONS. PROVIDED THERAPUTIC COMMUNICATION TO HELP SUPPORT PT EMOTIONAL NEEDS. ALERT AND ORIENTED X3, CONFUSED AT TIMES, EASILY REDIRECTABLE. PT REPORTING MILD SHARP INTERMITTENT PAIN AT TUBE SITE. ALSO C/O PAIN ON THE COCCYX. SLIGHTLY RED AND BLANCHABLE, MEPILEX REPLACED-USED PROTECTION, PT IS ABLE TO EXPRESS NEEDS. 1 PERSON ASSIST WITH FWW AND GAIT BELT. PT/OT WORKED WITH PT TODAY. CONTINUOUS BIOX ON, PT REFUSED CPAP. PT REQUIRES FREQUENT TURNING FOR COMFORT AND PILLOW SUPPORT FOR HIPS. EGG CRATE ADDED TO MATRESS. NPO EXCEPT FOR ICE CHIPS. PT USING SUCTION INDEPENDENTLY TO CLEAR SECRETIONS. D5 INFUSING AND K+
[2024-01-06] MEDS ORDERED: Protein Supplement 30 ML UD PT SCH (21:00)
[2024-01-07 03:45] VITALS: BP 136/73
--- NOTE | 2024-01-07 04:57 | NUR ---
SHIFT SUMMARY PT A&OX4 AT START OF SHIFT BUT PT BECAME CONFUSED AND WAS A&OX2-3 DURING THE NIGHT. PT ATTEMPTED TO GET OUT OF BED TO "MAIL LETTER" AND WAS PULLING AT LINES AND TUBES. TUBE FEEDING HAD BECOME DISCONECTED AND JEVITY WAS ALL OVER FLOOR, BED, AND PT. PT CLEANED AND HELPED BACK TO BED. TELE CALLED AT START OF SHIFT TO REPORT THAT PT HAD ST ELEVATIONS THAT STARTED AT 1958 AND STOPPED AT 2014. PT WAS ASYMPTOMATIC AND VSS. DR CALLED AND NO NEW ORDERS GIVEN. PT WENT BACK TO NORMAL SINUS RHYTHM AND NO MORE CALLS FROM TELE FOR REMAINDER OF NIGHT. CONTINUING IV ABX. INFUSING DEXTROSE 5% PER EMAR. PT C/O PAIN IN BACK AND MEDICATED PER EMAR. SHUKLA DRAINING PINK URINE. BED ALARM ON. BED IN LOWEST POSITION AND CALL LIGHT IN REACH.
[2024-01-07 06:06] LABS: Magnesium, Blood 1.5 mg/dL (1.6-2.4)
[2024-01-07 06:07] LABS: Bun/Creatinine Ratio 40.2 (12.0-20.0); Calcium, Blood 9.2 mg/dL (8.5-10.1); Creatinine, Blood 0.67 mg/dL (0.60-1.20); Phosphorus, Blood 1.7 mg/dL (2.5-4.9); Potassium, Blood 3.2 mmol/L (3.5-5.5)
[2024-01-07] MEDS ORDERED: Dextrose 5% 1,000 ML IV SCH (06:35)
[2024-01-07 07:37] VITALS: BP 171/69
[2024-01-07] MEDS ORDERED: Thiamine HCl 100 MG Tab PT ONE (13:00)
[2024-01-07 16:04] VITALS: BP 143/68
[2024-01-07] MEDS ORDERED: VENL150ER PT (19:07)
--- NOTE | 2024-01-07 19:35 | NUR ---
SHIFT SUMMARY PATIENT WAS ORIENTEDX3 BUT FORGETFUL AND CONFUSED INTERMITTEN. HE WAS PULLING AT LINES AND REMOVING TELE BOX AND OXYMETER SENSOR. DR BEATTY NOTIFIED. ORDER REICEVED TO DISCONTINUE TELEMETRY AND CONTINOUS PULSE OXYMETRY. PATIENT TOLERATED TUBE FEEDS WELL TODAY. GIVEN 1.5 CAN AT 1000, 1 CAN AT 1500, AND 1 CAN AT 1815 PER ORDER CHANGE TO 1 CAN FOUR TIMES PER DAY THIS MORNING. NIGHT NURSE MELVIN NOTIFIED 4TH CAN NEEDS TO BE GIVEN TODAY STILL TODAY. PATIENT MEDICATED FOR PAIN AND PROVIDED HEATING PAD WITH GOOD RELIEF. BED IN LOW POSITION, BED ALARM ON AND CALL LIGHT IN REACH. PATIENT USES CALL LIGHT APPROPRIATELY.
[2024-01-07 20:09] VITALS: BP 135/56
[2024-01-07] MEDS ORDERED: QUEtiapine Fumarate 25 MG Tab PO SCH (21:00)
--- NOTE | 2024-01-08 04:29 | NUR ---
SHIFT SUMMARY PT A&0X3 TONIGHT. PT USED CALL LIGHT APPROPRIATELY. PT REPORTED FEELING UNWELL AT START OF SHIFT. MEDICATED PER EMAR WITH LITTLE EFFECT. OFFERED PT HIS 2000 JEVITY BOLUS FEEDING BUT PT DECLINED. PT WAS ABLE TO SLEEP FOR SEVERAL HOURS AT THE BEGINING OF THE NIGHT BUT WAS "RESTLESS" AND AWAKE FOR THE REMAINDER OF THE NIGHT. ASSISTED PT WITH REPOSITIONING, HEAT PAD ON BACK, AND BACK RUB TO TRY TO HELP WITH SLEEP. PROTECTIVE FOAM DRESSING ON COCCYX CHANGED. CONTINUING DEXTROSE 5% PER ORDERS. VSS. BED ALARM ON. BED IN LOWEST POSITION AND CALL LIGHT IN REACH.
[2024-01-08 04:34] VITALS: BP 135/46
[2024-01-08 06:22] LABS: Magnesium, Blood 1.4 mg/dL (1.6-2.4)
[2024-01-08 06:23] LABS: Bun/Creatinine Ratio 33.6 (12.0-20.0); Calcium, Blood 9.2 mg/dL (8.5-10.1); Creatinine, Blood 0.74 mg/dL (0.60-1.20); Phosphorus, Blood 1.9 mg/dL (2.5-4.9)
[2024-01-08 07:23] VITALS: BP 158/62
[2024-01-08] MEDS ORDERED: Thiamine HCl 100 MG Tab PT SCH (09:00)
[2024-01-08] MEDS ORDERED: Mag Sulfate 1 GM/D5% 100ML 100 ML IV STA (09:44)
[2024-01-08] MEDS ORDERED: Potassium Phosphate Dibasic 10 MM in Dextrose 5% 250 ML IV STA (09:45)
[2024-01-08] MEDS ORDERED: Dextrose 5% 1,000 ML IV SCH (12:05)
[2024-01-08 15:07] VITALS: BP 163/77
--- NOTE | 2024-01-08 18:26 | NUR ---
SHIFT SUMMARY PATIENT TOLERATING BOLUS FEEDS WELL. MIDLINE INTACT FLUSHING WELL. C/O INCREASED ANXIETY AT NIGHT WHEN DOC ROUNDING, INCREASED SEROQUEL FOR BEDTIME. C/O INCREASED PAIN AND ANXIETY AT PROMPTING OF , WHEN ALONE IN ROOM PATIENT IS RESTING COMFORTABLY WITH EYES CLOSED AND DENIES ANXIETY WHEN ASKED. CARES ONGOING.
[2024-01-08 20:14] VITALS: BP 141/59
[2024-01-08] MEDS ORDERED: QUEtiapine Fumarate 25 MG Tab PO SCH (21:00)
[2024-01-09 02:50] VITALS: BP 152/70
--- NOTE | 2024-01-09 04:13 | NUR ---
SHIFT SUMMARY. NO ACUTE EVENTS OR CHANGES NOTED THIS SHIFT. PATIENT IS ALERT AND ORIENTED WITH FORGETFULNESS. PATIENT REPORTED TO THIS RN THAT "HE GETS HIS NIGHT AND DAYS MIXED UP". PATIENT IS EASILY REDIRECTED. PATIENTS PAIN ASSESSED AND MEDICATED PER EMAR X1 AT THIS TIME. PATIENT WALKED TO BATHROOM WITH 1P ASSIST, FWW, AND GB; WITH RETURN FROM BATHROOM TO BED PATIENT WEAK AND UNSTEADY. PATIENTS BED IS LOCKED IN THE LOWEST POSITION WITH CALL LIGHT IN REACH. BED EXIT ALARM IS ON FOR SAFETY. NO S/S OF DISTRESS NOTED AT THIS TIME. CARE IS ONGOING.
[2024-01-09 05:35] LABS: BASOPHILS ABSOLUTE AUTO 0.03 K/mm3 (0.00-0.23); BASOPHILS PERCENT AUTO 0 % (0-2); EOSINOPHILS ABSOLUTE AUTO 0.51 K/mm3 (0.00-0.68); EOSINOPHILS PERCENT AUTO 5 % (0-6); Hematocrit 26.1 % (37.0-53.0); Hemoglobin 8.6 g/dL (13.5-17.5); IMMATURE GRAN ABSOLUTE AUTO 0.07 K/mm3 (0.00-0.10); IMMATURE GRAN PERCENT AUTO 1 % (0-1); LYMPHOCYTES ABSOLUTE AUTO 1.18 K/mm3 (0.84-5.20); LYMPHOCYTES PERCENT AUTO 11 % (21-46); MONOCYTES ABSOLUTE AUTO 0.86 K/mm3 (0.16-1.47); MONOCYTES PERCENT AUTO 8 % (4-13); Mean Corpuscular HGB 31.9 pg (26.0-34.0); Mean Corpuscular Volume 97 fL (80-100); Mean Platelet Volume 10.7 fL (9.1-12.4); NEUTROPHILS ABSOLUTE AUTO 8.56 K/mm3 (1.96-9.15); NEUTROPHILS PERCENT AUTO 76 % (41-73); Platelet Count 240 K/mm3 (150-400); RDW Coefficient Variation 16.9 % (11.7-14.2); RDW Standard Deviation 59.4 fL (35.1-46.3); White Blood Cell Count 11.21 K/mm3 (4.00-11.30)
[2024-01-09 06:16] LABS: Bun/Creatinine Ratio 32.2 (12.0-20.0); Calcium, Blood 9.5 mg/dL (8.5-10.1); Creatinine, Blood 0.65 mg/dL (0.60-1.20); Magnesium, Blood 1.7 mg/dL (1.6-2.4); Phosphorus, Blood 2.5 mg/dL (2.5-4.9); Potassium, Blood 3.1 mmol/L (3.5-5.5)
[2024-01-09 07:58] VITALS: BP 170/74
[2024-01-09] MEDS ORDERED: Sodium Phosphate Mono/Dibasic 250 MG Tab PT SCH (09:00)
[2024-01-09] MEDS ORDERED: Potassium Chloride 20 MEQ/15 ML UDC PT SCH ×2 (09:00)
[2024-01-09] MEDS ORDERED: Magnesium Oxide 400 MG Tab PT SCH (09:00)
[2024-01-09 15:47] VITALS: BP 139/67
--- NOTE | 2024-01-09 18:09 | NUR ---
SHIFT SUMMARY PATIENT TOLERATING BOLUS FEEDS WELL THIS SHIFT. C/O BACK PAIN THIS SHIFT, GIVEN TYLENOL X2 WITH GOOD RELIEF. 06/07 TO 03/08 REPORTED. OUT OF BED SEVERAL TIMES THIS SHIFT, 1-2 ASSIST WITH WALKER, KNEES BUCKLE AT TIMES. ABLE TO USE SUCTION INDEPENDENTLY, SUCTIONED SMALL AMOUNT OF YELLOW SECRETIONS. SPOUSE IN THIS SHIFT DEMANDING TO SPEAK TO DOC REGARDING FURTHER IMAGING ON PATIENT'S BACK AND HIS INCREASED COMPLAINTS OF SEVERE PAIN. PATIENT DENIES SEVERE PAIN WHEN ASKED. EDUCATED SPOUSE ON PATIENT'S ACTIVITY THROUGHOUT THE SHIFT AND HIS MEDICATION REQUIREMENT AND REPORTED RELIEF, SHE STATED SHE DIDN'T BELIEVE THIS RN, THEN ACCUSED RN OF NOT ADMINISTERING TYLENOL. CALLED DR MURILLO AND REPORTED SPOUSES CONCERNS, STATED THE CONCERNS ADRESSED. CARES ONGOING.
[2024-01-09 19:56] VITALS: BP 131/62
--- NOTE | 2024-01-10 03:58 | NUR ---
SHIFT SUMMARY PT IS ALERT AND ORIENTED TO SELF AND PLACE. PT IS NPO AND HAS A PEG TUBE IN PLACE. PT RECEIVED HS MEDICATIONS AND BOLUS FEEDING THROUGH THEIR PEG TUBE, 100ML GIVEN BEFORE AND AFTER BOLUS FEEDINGS. PT TOLERATED BOLUS FEEDING AND MEDICATION ADMINISTRATION WELL. PT HAS CHRONIC SHUKLA IN PLACE WHICH IS PATENT AND DRAINING TO GRAVITY. PT GIVEN PRN TYLENOL FOR PAIN AFTER COMPLAINT OF PAIN. PT SLEPT MOST OF SHIFT WITH EYES CLOSED AND RESPIRATIONS EVEN AND UNLABORED. NO ACUTE EVENTS AT THIS TIME. PT VSS. PT LEFT IN A POSITION OF SAFETY WITH APPROPRIATE FALL PRECAUTIONS IN PLACE AND CALL LIGHT IN REACH.
[2024-01-10 04:37] VITALS: BP 130/76
[2024-01-10 05:52] LABS: BASOPHILS ABSOLUTE AUTO 0.03 K/mm3 (0.00-0.23); BASOPHILS PERCENT AUTO 0 % (0-2); EOSINOPHILS ABSOLUTE AUTO 0.47 K/mm3 (0.00-0.68); EOSINOPHILS PERCENT AUTO 5 % (0-6); Hematocrit 25.1 % (37.0-53.0); Hemoglobin 8.3 g/dL (13.5-17.5); IMMATURE GRAN ABSOLUTE AUTO 0.06 K/mm3 (0.00-0.10); IMMATURE GRAN PERCENT AUTO 1 % (0-1); LYMPHOCYTES PERCENT AUTO 14 % (21-46); MONOCYTES ABSOLUTE AUTO 0.75 K/mm3 (0.16-1.47); MONOCYTES PERCENT AUTO 8 % (4-13); Mean Corpuscular HGB Conc 33.1 g/dL (31.5-36.5); Mean Corpuscular Volume 97 fL (80-100); Mean Platelet Volume 10.2 fL (9.1-12.4); NEUTROPHILS ABSOLUTE AUTO 7.35 K/mm3 (1.96-9.15); NEUTROPHILS PERCENT AUTO 73 % (41-73); Platelet Count 238 K/mm3 (150-400); RDW Coefficient Variation 16.9 % (11.7-14.2); RDW Standard Deviation 59.7 fL (35.1-46.3); Red Blood Cell Count 2.59 M/mm3 (4.30-5.90); White Blood Cell Count 10.06 K/mm3 (4.00-11.30)
[2024-01-10 06:44] LABS: Albumin, Blood 2.3 g/dL (3.4-5.0); Albumin/Globulin Ratio 0.6 (0.8-1.8); Bilirubin, Total 0.5 mg/dL (0.1-1.0); Bun/Creatinine Ratio 34.4 (12.0-20.0); Calcium, Blood 9.3 mg/dL (8.5-10.1); Creatinine, Blood 0.64 mg/dL (0.60-1.20); Globulin, Blood 3.9 g/dL (2.2-4.0); Magnesium, Blood 1.6 mg/dL (1.6-2.4); Phosphorus, Blood 2.6 mg/dL (2.5-4.9); Potassium, Blood 3.3 mmol/L (3.5-5.5); Total Protein, Blood 6.2 g/dL (6.4-8.2)
[2024-01-10 07:59] VITALS: BP 150/62
[2024-01-10 16:18] VITALS: BP 147/65
--- NOTE | 2024-01-10 16:40 | NUR ---
SHIFT SUMMARY: NO EVENTS OR CHANGES WITH THE PATIENT DURING THE SHIFT. ONLY UPDATE IS THAT DIETARY UPDATED HIS TUBE FEEDS AND WATER ORDER. TOLERATING WELL. PLEASE SEE THEIR ORDER FOR CHANGES. DR. ROJAS CAME BY THIS MORNING AND MENTIONED THE PATIENT BEING DISCHARGED TO A SNF, HAVE NO UPDATED NOTES OR ORDERS FOR THIS AT THIS TIME. THE NURSE WRAPPER LEAF INSPECTOR HAS COME BY AND VISITED WITH THE PATIENT AND FAMILY. HE WORKED WITH PT TODAY AND DID WELL, WAS ABLE TO AMBULATE WITH A 1 ASSIST AND FWW/GAIT. SEE THEIR NOTES FOR FURTHER DETAILS. HE IS GETTING UP TO USE THE BEDSIDE COMMODE FOR BM'S, PARTICIPATES WITH HIS OWN CARE, PLEASANT AND COOPERATIVE. HE USES IS CALL LIGHT APPROPRIATELY, IS ALERT AND ORIENTED X4, COULD NOT REMEMBER THE MONTH, BUT KNEW THE DAY AND YEAR. HE CAN BE FORGET AND ACKNOWLEDGES THIS. HE IS IN BED, FAMILY AT BEDSIDE, CALL LIGHT WITHIN REACH, NO SIGNS OR SYMPTOMS OF DISTRESS, PLAN OF CARE ONGOING.
[2024-01-10] MEDS ORDERED: OxyCODONE HCL 5 MG TAB PT PRN (19:35)
[2024-01-10 19:55] VITALS: BP 143/58
[2024-01-11 02:09] VITALS: BP 159/85
--- NOTE | 2024-01-11 04:05 | NUR ---
SHIFT SUMMARY PT A&OX4 AND ANSWERS QUESTIONS APPROPRIATELY. PT HAS BOUTS OF CONFUSION BUT IS ABLE TO BE REORIENTED. PT RECEIVED JEVITY 1.5 THROUGH HIS PEG TUBE, HAVING 85ML FLUSH BEFORE AND AFTER. PT COMPLAINED OF PAIN AND WAS GIVEN PRN MEDICATION THROUGH PEG TUBE. IV ROCEPHIN ADMINISTERED AND TOLERATED WELL. PT SLEPT MOST OF SHIFT WITH EYES CLOSED AND RESPIRATIONS EVEN AND UNLABORED. NO ACUTE EVENTS OCCURED AT THIS TIME. VSS. NO COMPLAINTS OF CP OR SOB. PT LEFT IN A POSITION OF SAFETY WITH APPROPRIATE FALL PRECAUTIONS IN PLACE AND CALL LIGHT IN REACH.
[2024-01-11 06:15] LABS: BASOPHILS ABSOLUTE AUTO 0.03 K/mm3 (0.00-0.23); BASOPHILS PERCENT AUTO 0 % (0-2); EOSINOPHILS ABSOLUTE AUTO 0.39 K/mm3 (0.00-0.68); EOSINOPHILS PERCENT AUTO 4 % (0-6); Hematocrit 25.9 % (37.0-53.0); Hemoglobin 8.4 g/dL (13.5-17.5); IMMATURE GRAN ABSOLUTE AUTO 0.07 K/mm3 (0.00-0.10); IMMATURE GRAN PERCENT AUTO 1 % (0-1); LYMPHOCYTES ABSOLUTE AUTO 1.42 K/mm3 (0.84-5.20); LYMPHOCYTES PERCENT AUTO 13 % (21-46); MONOCYTES ABSOLUTE AUTO 0.99 K/mm3 (0.16-1.47); MONOCYTES PERCENT AUTO 9 % (4-13); Mean Corpuscular HGB 32.1 pg (26.0-34.0); Mean Corpuscular HGB Conc 32.4 g/dL (31.5-36.5); Mean Corpuscular Volume 99 fL (80-100); Mean Platelet Volume 10.8 fL (9.1-12.4); NEUTROPHILS PERCENT AUTO 74 % (41-73); Platelet Count 243 K/mm3 (150-400); RDW Standard Deviation 62.1 fL (35.1-46.3); Red Blood Cell Count 2.62 M/mm3 (4.30-5.90)
[2024-01-11 06:46] LABS: Albumin, Blood 2.2 g/dL (3.4-5.0); Albumin/Globulin Ratio 0.5 (0.8-1.8); Bilirubin, Total 0.4 mg/dL (0.1-1.0); Bun/Creatinine Ratio 32.9 (12.0-20.0); Calcium, Blood 9.3 mg/dL (8.5-10.1); Creatinine, Blood 0.64 mg/dL (0.60-1.20); Globulin, Blood 4.1 g/dL (2.2-4.0); Potassium, Blood 3.4 mmol/L (3.5-5.5); Total Protein, Blood 6.3 g/dL (6.4-8.2)
[2024-01-11 07:32] VITALS: BP 141/71
[2024-01-11 16:09] VITALS: BP 135/72
--- NOTE | 2024-01-11 17:37 | NUR ---
SHIFT SUMMARY: NO EVENTS OR CHANGES WITH THE PATIENT DURING THE SHIFT. HE CONTINUES TO TOLERATE HIS PEG TUBE/FEEDINGS WELL. HE IS PLEASANT AND COOPERATIVE WITH CARE AND HIS LEVEL OF ORIENTATION IS GOOD WITH BEING ABLE TO ANSWER QUESTIONS APPROPRIATELY, HE CALLS APPROPRIATELY, DOESN'T TRY TO GET UP WITHOUT CALLING, AND TRIES HIS BEST TO COMPLETE OWN ADLS. TRYING TO GET THE PATIENT DISCHARGED TO [facility], BUT AWAITING APPROVAL FROM THEIR FACILITY. SEE NURSE LABORATORY MACHINIST NOTE FOR MORE DETAILS. HE HAD MULTIPLE VISITORS TODAY, WALKED UP AND DOWN THE LORD WITH OT WITH FWW/GAITBELT. HE IS CURRENTLY IN BED, RESTING POST FEED AND PAIN MEDICATION ADMINISTRATION, CALL LIGHT WITHIN REACH, NO SIGNS OR SYMPTOMS OF DISTRESS, HIS AND STEP GRANDCHILD JUST LEFT DUE TO HIM SLEEPING. PLAN OF CARE ONGOING.
[2024-01-11 20:12] VITALS: BP 153/75
[2024-01-12 05:10] VITALS: BP 136/64
[2024-01-12 05:14] LABS: BASOPHILS ABSOLUTE AUTO 0.03 K/mm3 (0.00-0.23); BASOPHILS PERCENT AUTO 0 % (0-2); EOSINOPHILS ABSOLUTE AUTO 0.39 K/mm3 (0.00-0.68); EOSINOPHILS PERCENT AUTO 5 % (0-6); Hematocrit 25.6 % (37.0-53.0); Hemoglobin 8.3 g/dL (13.5-17.5); IMMATURE GRAN ABSOLUTE AUTO 0.03 K/mm3 (0.00-0.10); IMMATURE GRAN PERCENT AUTO 0 % (0-1); LYMPHOCYTES ABSOLUTE AUTO 1.59 K/mm3 (0.84-5.20); LYMPHOCYTES PERCENT AUTO 18 % (21-46); MONOCYTES PERCENT AUTO 9 % (4-13); Mean Corpuscular HGB Conc 32.4 g/dL (31.5-36.5); Mean Corpuscular Volume 99 fL (80-100); Mean Platelet Volume 10.2 fL (9.1-12.4); NEUTROPHILS ABSOLUTE AUTO 5.82 K/mm3 (1.96-9.15); NEUTROPHILS PERCENT AUTO 67 % (41-73); Platelet Count 253 K/mm3 (150-400); RDW Coefficient Variation 16.7 % (11.7-14.2); RDW Standard Deviation 59.7 fL (35.1-46.3); Red Blood Cell Count 2.59 M/mm3 (4.30-5.90); White Blood Cell Count 8.66 K/mm3 (4.00-11.30)
[2024-01-12 05:42] LABS: Albumin, Blood 2.3 g/dL (3.4-5.0); Anion Gap 2 mmol/L (6-16); Blood Urea Nitrogen 20 mg/dL (8-24); Bun/Creatinine Ratio 31.2 (12.0-20.0); CO2, Blood 30 mmol/L (21-32); Calcium, Blood 9.6 mg/dL (8.5-10.1); Chloride, Blood 110 mmol/L (98-108); Creatinine, Blood 0.64 mg/dL (0.60-1.20); Glomerular Filtration Rate 93 (60-); Glucose, Blood 119 mg/dL (70-99); Potassium, Blood 3.6 mmol/L (3.5-5.5); Sodium, Blood 142 mmol/L (136-145)
--- NOTE | 2024-01-12 06:24 | NUR ---
PINION SORTER SUMMARY PT A&0 X 4, PLEASANT. PT SLEPT MOST OF LIZY NIGHT ONLY WAKING FOR PAIN MEDICATION. PT MEDICATED X 2 WITH OXY AND APAP FOR CHRONIC BACK PAIN. PT SHUKLA DARK DEVORAH IN COLOR. PT TUBE FEEDING GIVEN AND PT TOLERATED THEM WELL, DENIED ANY DISCOMFORT OR STOMACH PAIN. NO ACUTE CHANGES THROUGH THE NIGHT. 01/12/24 VENANCIO FAIRBANKS RN
[2024-01-12 07:30] VITALS: BP 133/53
[2024-01-12] MEDS ORDERED: OxyCODONE HCL 5 MG TAB PT PRN (09:40)
[2024-01-12 15:25] VITALS: BP 154/53
[2024-01-12] MEDS ORDERED: Acetaminophen 325 MG TABLET PO PRN (16:00)
--- NOTE | 2024-01-12 17:11 | NUR ---
PT IS A/OX3, COOPERATIVE. PT SEEMS TO HAVE PERIODS OF FORGETFULLNESS.THE PT SLEPT OFF AND ON T/O THE DAY. PT REPORTED NOT HAVING GOOD PAIN CONTROL. THE PT WAS MEDICATED FOR PAIN. DR. KELLER DECREASED THE TIME INTERVAL FOR THE PAIN FROM Q6 TO Q4 PRN, PT STILL FELT THAT HE WAS NOT GETTING ADEQUATE PAIN CONTROL. PTS WAS AT THE BEDSIDE. DEMONSTRATION ON HOW TO MEDICATE AND FEED THE PT VIA THE PEG WAS GIVEN TO THE . CALL LIGHT IN REACH. BED IN THE LOW POSITION
[2024-01-12 19:56] VITALS: BP 128/70
[2024-01-13 02:55] VITALS: BP 148/66
--- NOTE | 2024-01-13 03:02 | NUR ---
SHIFT SUMMERY. PT MEDICATED X 2 WITH PAIN MEDS. PT RESTING ON AND OFF DURING THE NIGHT. PT SEEMS TO BE TOLERATING TUBE FEEDINGS WELL. CALL LIGHT IN REACH, URINE TO SHUKLA CATH DRAINING AND IS A REDISH PINK COLOR, NO CLOTS SEEN AT THIS TIME.
[2024-01-13 05:33] LABS: BASOPHILS ABSOLUTE AUTO 0.04 K/mm3 (0.00-0.23); BASOPHILS PERCENT AUTO 0 % (0-2); EOSINOPHILS ABSOLUTE AUTO 0.34 K/mm3 (0.00-0.68); EOSINOPHILS PERCENT AUTO 4 % (0-6); Hematocrit 26.6 % (37.0-53.0); Hemoglobin 8.5 g/dL (13.5-17.5); IMMATURE GRAN ABSOLUTE AUTO 0.03 K/mm3 (0.00-0.10); IMMATURE GRAN PERCENT AUTO 0 % (0-1); LYMPHOCYTES ABSOLUTE AUTO 1.32 K/mm3 (0.84-5.20); LYMPHOCYTES PERCENT AUTO 15 % (21-46); MONOCYTES ABSOLUTE AUTO 0.77 K/mm3 (0.16-1.47); MONOCYTES PERCENT AUTO 9 % (4-13); Mean Corpuscular HGB 31.6 pg (26.0-34.0); Mean Corpuscular Volume 99 fL (80-100); Mean Platelet Volume 10.7 fL (9.1-12.4); NEUTROPHILS ABSOLUTE AUTO 6.39 K/mm3 (1.96-9.15); NEUTROPHILS PERCENT AUTO 72 % (41-73); Platelet Count 270 K/mm3 (150-400); RDW Coefficient Variation 16.4 % (11.7-14.2); RDW Standard Deviation 58.7 fL (35.1-46.3); Red Blood Cell Count 2.69 M/mm3 (4.30-5.90); White Blood Cell Count 8.89 K/mm3 (4.00-11.30)
[2024-01-13 05:52] LABS: Albumin, Blood 2.4 g/dL (3.4-5.0); Anion Gap 1 mmol/L (6-16); Blood Urea Nitrogen 17 mg/dL (8-24); Bun/Creatinine Ratio 26.8 (12.0-20.0); CO2, Blood 29 mmol/L (21-32); Calcium, Blood 9.7 mg/dL (8.5-10.1); Chloride, Blood 111 mmol/L (98-108); Creatinine, Blood 0.64 mg/dL (0.60-1.20); Glomerular Filtration Rate 93 (60-); Glucose, Blood 102 mg/dL (70-99); Phosphorus, Blood 3.5 mg/dL (2.5-4.9); Potassium, Blood 4.1 mmol/L (3.5-5.5); Sodium, Blood 141 mmol/L (136-145)
[2024-01-13 07:22] VITALS: BP 127/47
[2024-01-13 11:36] LABS: SARS-Cov-2 (COVID-19) PCR, MMC NEGATIVE (NEGATIVE)
[2024-01-13] MEDS ORDERED: LISI20 PT (15:53)
[2024-01-13] MEDS ORDERED: MAG-OXIDE MAGN200 MG PT (15:54)
[2024-01-13] MEDS ORDERED: OXYC5 PT (15:55)
[2024-01-13] MEDS ORDERED: POTA20LUD PT (15:55)
[2024-01-13] MEDS ORDERED: B-1100 M1 PT (15:56)
[2024-01-13] MEDS ORDERED: K-Phos Origina500 MG PT (15:56)
--- NOTE | 2024-01-13 16:33 | NUR ---
DISCHARGE NOTE PT DISCHARGED TO SNF AT APPROX 1635. TRANSPORT PROVIDED W/ DISCHARGE PACKET. PT A&OX4, VSS, AMB W/ 1 ASSIST, TOLERATING PER PEG TUBE, VOIDING VIA SHUKLA AND SHUKLA REMAINED IN PLACE, AND PAIN MAANGED. BELONGINGS WERE RETURNED AND PT ESCOURTED OUT BY TRANSPORT COMPANY VIA W/C AND AUGUST VU.
--- NOTE | 2024-01-13 16:35 | NUR ---
NURSE TO NURSE REPORT CALLED [facility] AND GAVE REPORT TO GIACOMO AT APPROX 1625.
== END 2024-01-13 16:35 | DRG 871 ==
LOC: ER 22:51 → ICUE 22:52 → PCU 22:52 → MEDS 12-31 14:34 → PCU 01-02 11:31 → MEDS 01-02 20:34
PROVIDERS: Emergency Medicine; Family Medicine; Hospitalist; Internal Medicine; ADMIT Internal Medicine
PROC: 3E03329 Introduction of Other Anti-infective into Peripheral Vein, Percutaneous Approach (ICD-10-PCS; principal; 2023-12-31)
PROC: 30233N1 Transfusion of Nonautologous Red Blood Cells into Peripheral Vein, Percutaneous Approach (ICD-10-PCS; 2024-01-02)
PROC: 0DH63UZ Insertion of Feeding Device into Stomach, Percutaneous Approach (ICD-10-PCS; 2024-01-05)
PROC: 3E0G76Z Introduction of Nutritional Substance into Upper GI, Via Natural or Artificial Opening (ICD-10-PCS; 2024-01-05)
DX: A41.51 Sepsis due to Escherichia coli [E. coli] (principal); G93.41 Metabolic encephalopathy; N30.00 Acute cystitis without hematuria; R64 Cachexia; N17.9 Acute kidney failure, unspecified; E87.0 Hyperosmolality and hypernatremia; E44.0 Moderate protein-calorie malnutrition; C78.01 Secondary malignant neoplasm of right lung; C78.02 Secondary malignant neoplasm of left lung; C67.9 Malignant neoplasm of bladder, unspecified; Z11.52 Encounter for screening for COVID-19; I10 Essential (primary) hypertension; I25.10 Atherosclerotic heart disease of native coronary artery without angina pectoris; M48.061 Spinal stenosis, lumbar region without neurogenic claudication; M17.0 Bilateral primary osteoarthritis of knee; N40.0 Benign prostatic hyperplasia without lower urinary tract symptoms; F32.A Depression, unspecified; E78.5 Hyperlipidemia, unspecified; G47.33 Obstructive sleep apnea (adult) (pediatric); M10.9 Gout, unspecified; K21.9 Gastro-esophageal reflux disease without esophagitis; D63.0 Anemia in neoplastic disease; R31.9 Hematuria, unspecified; R65.20 Severe sepsis without septic shock; R13.10 Dysphagia, unspecified; E11.51 Type 2 diabetes mellitus with diabetic peripheral angiopathy without gangrene; K76.0 Fatty (change of) liver, not elsewhere classified; E83.42 Hypomagnesemia; K59.00 Constipation, unspecified; N13.9 Obstructive and reflux uropathy, unspecified; E87.6 Hypokalemia; E83.39 Other disorders of phosphorus metabolism; G47.00 Insomnia, unspecified; Z68.25 Body mass index [BMI] 25.0-25.9, adult; Z95.5 Presence of coronary angioplasty implant and graft; Z90.49 Acquired absence of other specified parts of digestive tract; Z98.890 Other specified postprocedural states; Z87.891 Personal history of nicotine dependence; Z88.0 Allergy status to penicillin; Z91.013 Allergy to seafood; Z79.82 Long term (current) use of aspirin; Z79.899 Other long term (current) drug therapy; W06.XXXA Fall from bed, initial encounter
CPT/HCPCS: 0241U; 36415; 36430; 70450; 71260; 72125; 74177; 74230; 80047; 80048; 80053; 80069; 81001; 82803; 82947; 83605; 83690; 83735; 83880; 84100; 84443; 84484; 85014; 85018; 85025; 85610; 85730; 86850; 86900; 86901; 86923; 87040; 87077; 87086; 87186; 92526; 92610; 92611; 93005; 93010; 93925; 94760; 94762; 96361; 96365; 96366; 96368; 97110; 97110-CQ; 97116; 97162; 97167; 97530; 97530-CQ; 97535; 99285-25; A9270; C1751; C1769; G0378; J0360; J0690; J0692; J0696; J1170; J1650; J1940; J2704; J3010; J3370; J3475; J3480; J7030; J7042; J7050; J7060; J7070; J7120; P9016; Q9967; U0002